=== PATIENT | male | born 1980 | race Caucasian/White ===

== ENCOUNTER 2016-04-18 12:14 | Inpatient (IN) | payer OTHER ==
[2016-04-18] MEDS ORDERED: IV VANCOMYCIN PER PHARMACY 1 EACH MISC MISCELLANE PRN (12:38)
[2016-04-18] MEDS ORDERED: SODIUM CHLORIDE 0.9% 1,000 ML IV STA ×2 (12:38)
[2016-04-18] MEDS ORDERED: VANCOMYCIN 1,500 MG in SODIUM CHLORIDE 0.9% 250 ML IVPB STA (12:40)
[2016-04-18] MEDS ORDERED: ACETAMINOPHEN IV (For NPO) 1,000 MG in SALINE 100 100ML.BAG IVPB STA (12:44)
--- NOTE | 2016-04-18 12:44 | ED ---
General Adult HPI - General Source: patient, RN notes reviewed Mode of arrival: ambulatory Limitations: no limitations <Miller Haynes - Last Filed: 04/18/16 14:11> <Cuco Nuno - Last Filed: 05/04/16 08:59> - General Chief complaint: Skin/Abscess/Foreign Body Stated complaint: Male Time Seen by Provider: 04/18/16 12:29 - History of Present Illness Initial comments: Patient 35-year-old male who presents emergency room today with a chief complaint of "bites" to his legs and to his scrotum and penis. Patient states that her Zosyn 3 days ago with to the tip of his penis. Patient states that he also has a spot located to the right scrotum. States that he's been using peroxide areas. Please it's due to bed bugs. Has a few spots going down the legs. States is local tenderness. He denies any other complaints. Patient denies any recent fever, chills, shortness of breath, chest pain, back pain, abdominal pain, nausea or vomiting, numbness or tingling, dysuria or hematuria, constipation or diarrhea, headaches or visual changes, or any other complaints. (Miller Haynes) - Related Data Home Medications Medication Instructions Recorded Confirmed ARIPiprazole [Abilify Maintena] 400 mg IM Q28D 03/29/15 04/18/16 Divalproex ER [Depakote ER] 1,000 mg PO HS 01/09/16 04/18/16 Ibuprofen [Advil] 200 - 400 mg PO Q8HR PRN 04/18/16 04/18/16 Previous Rx's Medication Instructions Recorded Acetaminophen Tab [Tylenol] 650 mg PO Q6HR PRN #0 tab 04/24/16 Ibuprofen [Motrin] 600 mg PO Q6HR PRN #30 tab 04/24/16 ceFAZolin [Kefzol] 2 gm IV Q8H #42 bag 04/24/16 Allergies Allergy/AdvReac Type Severity Reaction Status Date / Time No Known Allergies Allergy Verified 04/18/16 13:09 Review of Systems ROS Other: All systems not noted in ROS Statement are negative. <Miller Haynes - Last Filed: 04/18/16 14:11> ROS Other: All systems not noted in ROS Statement are negative. <Cuco Nuno - Last Filed: 05/04/16 08:59> ROS Statement: Those systems with pertinent positive or pertinent negative responses have been documented in the HPI. Past Medical History Past Medical History: No Reported History Additional Past Medical History / Comment(s): Mental health History of Any Multi-Drug Resistant Organisms: None Reported Past Surgical History: Adenoidectomy, Tonsillectomy Past Psychological History: Depression Smoking Status: Current every day smoker Past Alcohol Use History: None Reported Past Drug Use History: None Reported <DallasMiller - Last Filed: 04/18/16 14:11> General Exam Limitations: no limitations <Miller Haynes - Last Filed: 04/18/16 14:11> <Cuco Nuno - Last Filed: 05/04/16 08:59> - General Exam Comments Initial Comments: General: The patient is awake and alert, in no distress, and does not appear acutely ill. Eye: Pupils are equal, round and reactive to light, extra-ocular movements are intact. No nystagmus. There is normal conjunctiva bilaterally. No signs of icterus. Ears, nose, mouth and throat: There are moist mucous membranes and no oral lesions. Neck: The neck is supple, there is no tenderness or JVD. Cardiovascular: Cardiac No murmur, rub or gallop is appreciated. Respiratory: Lungs are clear to auscultation, respirations are non-labored, breath sounds are equal. No wheezes, stridor, rales, or rhonchi. Gastrointestinal: Soft, non-distended, non-tender abdomen without masses or organomegaly noted. There is no rebound or guarding present. No CVA tenderness. Bowel sounds are unremarkable. Musculoskeletal: Normal ROM, no tenderness. Strength 5/5. Sensation intact. Pulses equal bilaterally 2+. Neurological: A&O x 3. CN II-XII intact, There are no obvious motor or sensory deficits. Coordination appears grossly intact. Speech is normal. Skin/: She does have small scattered scabs to the shins bilaterally. Patient does have abscess formation to the left upper thigh measuring approximately 1-2 cm across. Patient has area to the right upper scrotum which is firm on palpation maxillary approximate 1-2 cm across. Excoriated centrally. Patient does have redness around the tip of the penis. Psychiatric: Cooperative, appropriate mood & affect, normal judgment. (Miller Haynes) Procedures <Miller Haynes - Last Filed: 04/18/16 14:11> <Cuco Nuno - Last Filed: 05/04/16 08:59> - Procedures Initial comment: Procedure: Incision and drainage Abscess to the left upper leg. The skin overlying the abscess was prepped with Betadine, and anesthetized with 1% lidocaine without epinephrine. A #11 scalpel was then used to incise the abscess. Some purulent material was then extracted from the lesion. Wound culture obtained. Gauze dressing placed on top, The patient tolerated the procedure well. (Miller Haynes) Medical Decision Making - Lab Data Result diagrams: 04/18/16 12:47 04/18/16 12:47 <Miller Haynes - Last Filed: 04/18/16 14:11> - Lab Data Result diagrams: 04/22/16 07:26 04/24/16 07:46 <Cuco Nuno - Last Filed: 05/04/16 08:59> - Medical Decision Making Patient labs reviewed here in the emergency room shows 27,000 white count. Chest x-ray does show evidence for patchy pneumonia. Patient will be started on antibiotics. Patient's been started on a glass here in the emergency room. Case was discussed and seen by attending physician Dr. Nuno who discussed case with covering physician for Dr. Jori Andrews. Patient will be admitted with consult to infectious disease Dr Bermeo. (Miller Haynes) I saw this patient in conjunction with the physician wet process assistant head miller. I performed independent history and physical exam. Agree with case management. (Cuco Nuno) - Lab Data Lab Results 04/18/16 04/18/16 04/18/16 Range/Units 12:47 12:47 12:47 WBC 27.3 H* (3.8-10.6) k/uL RBC 4.51 (4.30-5.90) m/uL Hgb 14.8 (13.0-17.5) gm/dL Hct 43.0 (39.0-53.0) % MCV 95.4 (80.0-100.0) fL MCH 32.8 (25.0-35.0) pg MCHC 34.4 (31.0-37.0) g/dL RDW 12.3 (11.5-15.5) % Plt Count 179 (150-450) k/uL Neutrophils % (Manual) 79.0 % Band Neutrophils % 9.0 % Lymphocytes % (Manual) 3.0 % Monocytes % (Manual) 9.0 % Neutrophils # (Manual) 24.0 H (1.3-7.7) k/uL Lymphocytes # (Manual) 0.8 L (1.0-4.8) k/uL Monocytes # (Manual) 2.5 H (0-1.0) k/uL Nucleated RBCs 0 (0-0) /100 WBC Manual Slide Review Performed Toxic Granulation Present RBC Morphology Normal Sodium 137 (137-145) mmol/L Potassium 4.2 (3.5-5.1) mmol/L Chloride 97 L (98-107) mmol/L Carbon Dioxide 30 (22-30) mmol/L Anion Gap 10 mmol/L BUN 5 L (9-20) mg/dL Creatinine 0.85 (0.66-1.25) mg/dL Est GFR (MDRD) Af Amer >60 (>60 ml/min/1.73 sqM) Est GFR (MDRD) Non-Af >60 (>60 ml/min/1.73 sqM) Glucose 109 H (74-99) mg/dL Plasma Lactic Acid Fritz 1.4 (0.7-2.0) mmol/L Calcium 10.0 (8.4-10.2) mg/dL Total Bilirubin 0.8 (0.2-1.3) mg/dL AST 59 (17-59) U/L ALT 92 H (21-72) U/L Alkaline Phosphatase 100 (38-126) U/L Total Protein 7.6 (6.3-8.2) g/dL Albumin 4.2 (3.5-5.0) g/dL Disposition Time of Disposition: 13:55 <Miller Haynes - Last Filed: 04/18/16 14:11> <Cuco Nuno - Last Filed: 05/04/16 08:59> Clinical Impression: Scrotal abscess, Fever, Leukocytosis, Leg abscess, Community acquired pneumonia Disposition: ADMITTED IP TO THIS [facility] Condition: Stable
[2016-04-18 13:02] LABS: CH 32.5; CHCM 34.2; HDW 2.24; HGB 14.8 gm/dL (13.0-17.5); Immature Gran Flag Slight; MCH 32.8 pg (25.0-35.0); MCHC 34.4 g/dL (31.0-37.0); MCV 95.4 fL (80.0-100.0); RBC 4.51 m/uL (4.30-5.90); RDW 12.3 % (11.5-15.5); WBC (Perox) 25.01
[2016-04-18 13:11] LABS: ALT 92 U/L (21-72); AST 59 U/L (17-59); Alkaline Phosphatase 100 U/L (38-126); Anion Gap 10 mmol/L; Blood Urea Nitrogen 5 mg/dL (9-20); Carbon Dioxide 30 mmol/L (22-30); Chloride 97 mmol/L (98-107); Glucose 109 mg/dL (74-99); Non-African American GFR(MDRD) >60 (>60 ml/min/1.73 sqM); Potassium 4.2 mmol/L (3.5-5.1); Sodium 137 mmol/L (137-145); Total Bilirubin 0.8 mg/dL (0.2-1.3); Total Protein 7.6 g/dL (6.3-8.2); WBC 27.3 k/uL (3.8-10.6)
[2016-04-18 13:19] LABS: Add Differential Manual Differential
[2016-04-18 13:21] LABS: Manual Review Performed; Nucleated Red Blood Cells 0 /100 WBC (0-0); RBC Morphology Normal; Total Cells Counted 100; Toxic Granulation Present
[2016-04-18] MEDS ORDERED: IBUPROFEN 600 MG TAB PO STA (13:49)
[2016-04-18] MEDS ORDERED: SODIUM CHLORIDE 0.9% 1,000 ML IV ONE (13:55)
[2016-04-18] MEDS ORDERED: ONDANSETRON 4 MG/2 ML VIAL IVP PRN (13:55)
[2016-04-18] MEDS ORDERED: NALOXONE 0.4 MG/ML 1 ML VIAL IV PRN (13:55)
[2016-04-18] MEDS ORDERED: IBUPROFEN 400 MG TAB PO PRN (13:55)
[2016-04-18] MEDS ORDERED: HYDROmorphone 1 MG/ML 1 ML SYRINGE IV PRN (13:55)
--- NOTE | 2016-04-18 14:05 | XR ---
EXAMINATION TYPE: XR chest 2V DATE OF EXAM: 04/18/2016 1:48 PM COMPARISON: 10/22/2012 INDICATION: Cough TECHNIQUE: Single frontal view of the chest is obtained. FINDINGS: The heart size is normal. The pulmonary vasculature is normal. Patchy infiltrates are present greater on the right. Underlying masses are not excluded. Follow-up to clearing is recommended. IMPRESSION: 1. Patchy infiltrates greater on the right. Correlate for pneumonia. This should be followed to clear ing.
[2016-04-18] MEDS ORDERED: AZITHROMYCIN 500 MG in SODIUM CHLORIDE 0.9% 250 ML IVPB STA (14:15)
[2016-04-18] MEDS: LEVOFLOXACIN 750 MG TAB PO SCH (16:39)
[2016-04-18] MEDS: DIVALPROEX ER 500 MG TAB.ER.24H PO SCH (19:57)
[2016-04-18] MEDS: HYDROcodone/APAP 5-325MG 1 EACH TAB PO PRN (20:01)
[2016-04-18] MEDS: VANCOMYCIN 1,500 MG in SODIUM CHLORIDE 0.9% 250 ML IVPB SCH (23:59)
[2016-04-19] MEDS: IBUPROFEN 600 MG TAB PO PRN ×3 (04:43→20:16)
[2016-04-19 07:24] LABS: Basophils # (A) 0.1 k/uL (0-0.2); Basophils % (A) 0 %; CH 32.2; CHCM 33.2; Eosinophils # (A) 0.1 k/uL (0-0.7); Eosinophils % (A) 0 %; HCT 37.6 % (39.0-53.0); HDW 2.12; HGB 12.5 gm/dL (13.0-17.5); Luc # (Auto) 0.43; Luc % (Auto) 2; Lymphocytes # (A) 1.6 k/uL (1.0-4.8); Lymphocytes % (A) 7 %; MCH 32.4 pg (25.0-35.0); MCHC 33.4 g/dL (31.0-37.0); MCV 97.3 fL (80.0-100.0); Mean Platelet Volume 7.1; Monocytes # (A) 0.9 k/uL (0-1.0); Monocytes % (A) 4 %; Neutrophils # (A) 18.5 k/uL (1.3-7.7); Neutrophils % (A) 86 %; RBC 3.87 m/uL (4.30-5.90); RDW 12.4 % (11.5-15.5); WBC 21.5 k/uL (3.8-10.6); WBC (Perox) 22.56
[2016-04-19 07:44] LABS: ALT 50 U/L (21-72); AST 19 U/L (17-59); Alkaline Phosphatase 78 U/L (38-126); Anion Gap 10 mmol/L; Blood Urea Nitrogen 6 mg/dL (9-20); Calcium 8.4 mg/dL (8.4-10.2); Carbon Dioxide 22 mmol/L (22-30); Chloride 101 mmol/L (98-107); Glucose 121 mg/dL (74-99); Non-African American GFR(MDRD) >60 (>60 ml/min/1.73 sqM); Potassium 3.7 mmol/L (3.5-5.1); Sodium 133 mmol/L (137-145); Total Bilirubin 0.7 mg/dL (0.2-1.3); Total Protein 5.7 g/dL (6.3-8.2)
--- NOTE | 2016-04-19 08:29 | CONS ---
DATE OF CONSULTATION: 04/18/2016 REASON FOR CONSULTATION: 1. Scrotal and left thigh abscess. 2. Possible pneumonia. HISTORY OF PRESENT ILLNESS: The patient is a 35 -year-old male presenting to the ER with a chief complaints of multiple insect bites to his scrotal and left thigh area. He said this has been going on for about 3 days. The patient did develop swelling and redness of the left thigh area. Pain is described to be throbbing, 5-6/10 and no radiation. The patient denies any high grade fever, rigors or chills. However, did spike a fever down in the ER. The patient did have drainage of the left thigh abscess done by the ER physician. Culture has been obtained. He did have a chest x-ray that was suspicious for pneumonia. The patient will be started on broad-spectrum antibiotics in the form of Vanco and Rocephin and azithromycin. Admitted to the hospital. I was asked to see the patient for further recommendation. Patient thinks it is more likely from bed bugs, however, not sure if he has seen any of the bugs themselves. The patient did have underlying history of bipolar depression. Currently denies any worsening symptoms as far as depression is concerned. The patient is sexually active and uses protection and with the same partner for a long time. REVIEW OF SYSTEMS: CONSTITUTIONAL: Positive for weakness and a fever. EYES: No complaint. ENT: No complaint. RESPIRATORY: As per HPI. CARDIOVASCULAR: No complaint. GENITOURINARY: As per HPI . GASTROENTEROLOGY: No complaint. MUSCULOSKELETAL: No complaint. INTEGUMENTARY: As per HPI. PSYCHOLOGICAL: No complaint. ENDOCRINE: No complaint. NEUROLOGICAL: No complaint. Past medical history significant for bipolar depression. PAST SURGICAL HISTORY: Adenoidectomy, tonsillectomy. SOCIAL HISTORY: The patient is a current every day smoker and denied any drinking or drug use. Sexually active. ALLERGIES: No known drug allergies. Medications currently include the patient is on: 1. Tylenol. 2. [place]. 3. Rocephin. 4. Depakote. 5. Dilaudid. 6. Motrin. 7. Zithromax. 8. Narcan. 9. Zofran. 10. Vancomycin. On examination, blood pressure is 122/60 with a pulse of 114, temperature 100.9, T-max is 101.1. He is 99% on 2 liters nasal cannula. General description is a middle-age male lying in bed in no distress. HEENT no pallor or scleral icterus. Oral mucosa membranes dry. NECK: Trachea central. There is no thyromegaly. LUNGS: Unlabored breathing. Some coarse breath sounds at base. No wheeze. HEART: S1, S2. Regular rate and rhythm. ABDOMEN: Soft, no tenderness. Extremities: No edema of the feet. SKIN EXAMINATION: Patient did have a boil that has been drained from the left thigh area with some erythema. No pus was noticed. He also has an area of induration of his right scrotal area, but no fluctuation or drainage. NEUROLOGICAL: The patient is awake, alert, oriented x3. Mood and affect normal. LABS: Hemoglobin is 14.8, white count 27.3 with a BUN of 5, creatinine 0.5. Electrolytes have been normal. LDL elevated to 92. Blood culture has been obtained which are currently pending. DIAGNOSTIC IMPRESSION AND PLAN: Patient admitted to the hospital with sepsis and patient did have fever of 101 degrees Fahrenheit. The patient did have tachycardia, elevated white count meeting criteria for systemic inflammatory response syndrome, source is likely multifactorial with evidence of right scrotum and left thigh abscess likely from Gram-positive skin mariza such as Staph or Strep. The patient also has evidence of pneumonia on the basis of the x-ray findings and his congested cough. The patient is not a very good historian. More likely usual respitory pathogen. PLAN: 1. We will try to obtain sputum for Gram stain and cultures. blood culture has been obtained as well as the wound cultures. 2. The patient did mention he did have HIV test about a year ago that was negative but did agree to have hence HIV test will be ordered. 3. The patient continue on Vancomycin however, switch Zithromax to Levaquin. 4. Will follow up on his clinical condition and cultures to further adjust the medication if needed. Thank you for this consultation. We will follow this patient along with you. PIEDAD
[2016-04-19] MEDS: VANCOMYCIN 1,500 MG in SODIUM CHLORIDE 0.9% 250 ML IVPB SCH ×2 (08:44→20:16)
[2016-04-19] MEDS ORDERED: AZITHROMYCIN 500 MG in SODIUM CHLORIDE 0.9% 250 ML IVPB SCH (16:00)
[2016-04-19] MEDS: LEVOFLOXACIN 750 MG TAB PO SCH (17:00)
[2016-04-19] MEDS: ACETAMINOPHEN TAB 325 MG TAB PO PRN ×2 (17:00→23:11)
[2016-04-19] MEDS: DIVALPROEX ER 500 MG TAB.ER.24H PO SCH (20:16)
[2016-04-19] MEDS: HEPARIN SODIUM,PORCINE 5,000 UNIT/ML 1 ML VIAL SQ SCH (20:17)
--- NOTE | 2016-04-19 20:35 | HP ---
DATE OF ADMISSION: 04/18/2016 I am covering for Dr. Santiago Velez. Mayito Canas is a 35-year-old male who came into the ED with a complaint of bites to his leg, scrotum and penis. He had some drainage coming out and then put some peroxide on this. He started to get worse and subsequently came into the ED for further evaluation. PAST MEDICAL HISTORY: Positive for depression, adenoidectomy, tonsillectomy. SOCIAL HISTORY: The patient is a smoker, does not drink alcohol excessively. FAMILY HISTORY: Noncontributory. Medications prior to admission were: 1. Advil. 2. Depakote. 3. Abilify. On physical examination, temperature is 98.1, respiratory rate 18, pulse rate 91, blood pressure 108/57. O2 sat is 97%. HEENT is unremarkable. Chest is clear. Cardiovascular system reveals S1 and S2. ABDOMEN: Soft. There is no edema. Scrotal area has erythema with some purulent drainage, which there is also some swelling in the left thigh consistent with an abscess Labs reveal blood pressure 27.3 thousand, hemoglobin of 14.8. Sodium 137, potassium 4.2, chloride 97, bicarbonate 30, BUN 5, creatinine 0.85, albumin of 3. Sodium 133. Chest x-ray shows some patchy infiltrates. IMPRESSION: 1. Scrotal cellulitis with possible abscess in the thigh. 2. Systemic inflammatory response. 3. Scattered infiltrates, which may be due to systemic inflammatory response and nonspecific reaction in the lung. 4. Hyponatremia. 5. Moderately severe protein malnutrition. At this point in time, the patient has been seen by ID, would continue Rocephin and Levaquin with vancomycin. Keep him on GI and DVT prophylaxis. Would have general surgery further evaluate the patient to see if he would require any kind of incision and drainage. He was counseled regarding his condition and this approach.
[2016-04-20] MEDS: VANCOMYCIN 1,500 MG in SODIUM CHLORIDE 0.9% 250 ML IVPB SCH ×3 (03:48→19:19)
[2016-04-20 04:16] LABS: HIV-1/HIV-2 Ab Screen NONREAC (NON REAC)
[2016-04-20] MEDS ORDERED: VANCOMYCIN TROUGH DUE 1 EACH MISC MISCELLANE ONE ×2 (07:00→18:00)
--- NOTE | 2016-04-20 07:25 | PN ---
DATE OF SERVICE: 04/19/2016 Reason for followup is: 1. Scrotal and left thigh abscess with Gram-positive bacteremia. 2. Question of pneumonia. INTERVAL HISTORY: The patient is afebrile. Has been breathing comfortably. The patient's left eye pain and swelling has improved. Patient denies having any chest pain, shortness of breath, has some occasional cough. No abdominal pain. On examination, blood pressure is 138/57 with a pulse of 91, temperature of 98.1. He is 97% on room air. General description is a middle-age male, up in the chair in no distress. HEENT EXAMINATION: No scleral icterus. LUNGS: Unlabored breath, coarse breath sounds at the base. HEART: S1, S2. Regular rate and rhythm. ABDOMEN: Soft, no tenderness. Left thigh redness has slightly decreased; however, on pressure pus did come out. Scrotal induration was present, about the same, no worsening. LABS: Hemoglobin is 12.5, white count 21.5, BUN of 6, creatinine 0.79. The left thigh culture showing a presumptive Staphylococcus aureus, blood culture with gram-positive cocci in clusters. DIAGNOSTIC IMPRESSION AND PLAN: 1. Patient admitted to hospital with sepsis, source would be left thigh, scrotal abscess and cellulitis, status post drainage of the abscess from the left thigh area. At this time, the patient will continue vancomycin, pharmacy to dose. Blood culture repeat with no evidence of any persistent bacteremia. 2. Patient with question of possible pneumonia, community-acquired. He is currently covered with Rocephin and azithromycin that will be continued. Will try to obtain sputum. Continue supportive care. [facility]
[2016-04-20 08:29] LABS: Anion Gap 11 mmol/L; Blood Urea Nitrogen 8 mg/dL (9-20); Carbon Dioxide 23 mmol/L (22-30); Chloride 100 mmol/L (98-107); Glucose 100 mg/dL (74-99); Non-African American GFR(MDRD) >60 (>60 ml/min/1.73 sqM); Potassium 3.7 mmol/L (3.5-5.1); Sodium 134 mmol/L (137-145)
[2016-04-20] MEDS: ACETAMINOPHEN TAB 325 MG TAB PO PRN ×2 (10:05→17:32)
[2016-04-20] MEDS: HEPARIN SODIUM,PORCINE 5,000 UNIT/ML 1 ML VIAL SQ SCH ×2 (10:09→20:23)
--- NOTE | 2016-04-20 11:12 | P.PN ---
Subjective 35-year-old who presented to the emergency room on the april with a chief complaint of having bites involving the scrotum the penis the tip of the penis and the left upper thigh patient states he lives with his brother in which there are bedbugs in the house. Patient came into the emergency room to be seen for the above-mentioned symptoms. In the emergency room the temp was 101 heart rate was in the 130s with an elevated white count. Patient was being treated for sepsis meeting sirs criteria left thigh abscess gram-positive bacteremia with a question of pneumonia the cultures that were obtained from the left thigh showed presumptive Staphylococcus aureus blood culture was positive for gram- positive cocci in clusters with infectious disease consultation requested patient started on IV vancomycin and Zosyn. In the emergency room the abscess to the left upper thigh incision and drainage of the abscess with purulent material extracted from the lesion with wound cultures obtained chest x-ray in emergency room also suggest patchy pneumonia noted bilaterally right greater than the left Being seen on rounds this morning is up in the room currently left thigh abscess surrounding skin less red less firm positive tenderness no drainage noted. The right upper scrotum has erythema with some tenderness area is firm skin excoriated noted to the tip of the penis no drainage noted from the tip of the penis The tip of the penis redness noted around it there are multiple scattered scabs to the martínez bilaterally Objective - Vital Signs Vital signs: Vital Signs Temp 98 F 04/20/16 07:00 Pulse 100 04/20/16 07:00 Resp 16 04/20/16 07:00 BP 113/64 04/20/16 07:00 Pulse Ox 94 L 04/20/16 07:00 Intake & Output 04/19/16 04/20/16 04/20/16 18:59 06:59 18:59 Intake Total 480 1600 Balance 480 1600 Weight 90.718 kg Intake: Oral 480 1600 Other: Voiding Method Toilet Toilet Toilet Urinal Urinal Urinal # Voids 1 2 - Exam Physical exam 35-year-old male up in room appears in no acute distress lungs essentially clear on room air Heart S1-S2 audible regular Abdomen flat nontender no reports of nausea vomiting Extremities multiple scabbed areas on the bilateral lower extremities no edema Skin/ abscess formation on the left upper thigh approximately 2 cm across firm red not able to express any drainage from the site. The right upper scrotum firm with a palpable firm area noted approximately 2 cm. Skin excoriation noted to the right upper scrotum and the tip of the penis no drainage noted from the tip of the meatus - Labs CBC & Chem 7: 04/19/16 07:08 04/20/16 07:23 Labs: Abnormal Lab Results - Last 24 Hours (Table) 04/20/16 Range/Units 07:23 Sodium 134 L (137-145) mmol/L BUN 8 L (9-20) mg/dL Creatinine 0.63 L (0.66-1.25) mg/dL Glucose 100 H (74-99) mg/dL Microbiology - Last 24 Hours (Table) 04/20/16 00:49 Sputum Culture - Preliminary Sputum 04/19/16 12:37 Blood Culture Gram Stain - Preliminary Blood 04/19/16 12:28 Blood Culture - Preliminary Blood 04/18/16 14:07 Gram Stain - Preliminary Thigh - Left Wound Culture - Preliminary Presumptive Staph aureus Assessment and Plan Plan: Impression Present on admission sepsis multifactorial meet SIRS criteria likely due to left thigh and scrotal abscess with cellulitis with chest x-ray suggesting bilateral pneumonia right greater than the left likely community-acquired Status post drainage of the abscess of the left thigh done in the emergency room on admission Bipolar schizoaffective disorder Positive blood culture for bacteremia gram-positive with positive wound culture Staphylococcus aureus Current every day smoker probable COPD not diagnosed Present on admission insect bites likely bedbugs to the left upper thigh scrotum and penis Moderately severe protein malnutrition underweight BMI 27 Plan IV antibiotic Levaquin and Rocephin and vancomycin Continue recommendations by infectious disease Surgical eval pending Present on admission hyponatremia Nutritional supplements Resume home meds as appropriate DVT and GI prophylaxis Wound care per infectious diseases recommendations The above dictated assessment and findings were discussed with dr mayen . Impression and the plan of care have been dictated as directed. Jenna Colon nurse practitioner acting as a scribe for dr mayen .
[2016-04-20] MEDS ORDERED: HYDROmorphone 1 MG/ML 1 ML SYRINGE IVP PRN (11:13)
[2016-04-20] MEDS: FAMOTIDINE 20 MG TAB PO SCH ×2 (11:40→20:22)
[2016-04-20] MEDS: IBUPROFEN 600 MG TAB PO PRN (14:40)
[2016-04-20] MEDS: LEVOFLOXACIN 750 MG TAB PO SCH (17:31)
--- NOTE | 2016-04-20 17:46 | HP ---
DATE OF ADMISSION: CHIEF COMPLAINT: Cellulitis of the left leg. HISTORY OF PRESENT ILLNESS: This is another admission for this 35-year-old male. He apparently sustained some type of a bite or a cut on the left anterior thigh which went on to develop an intensely red, inflamed and tender cellulitis on the left thigh heading down into the lower leg. He has also had an erythematous rash in the groin and on the penis as well. He also has an impressive meatitis. He is a poor historian. REVIEW OF SYSTEMS: He denies any neurologic problems, change in vision or hearing, cough, hemoptysis, chest pain, murmurs, rheumatic fever, abdominal pain, melena, hematochezia, jaundice, hematemesis, ulcer disease, pancreatitis, etc. He is not a diabetic. Past medical history, family history, and personal and social histories reveal that he is on: 1. Lipitor 10 mg at bedtime. 2. Benadryl 50 mg at bedtime. 3. ( ) 10 mg once a day. 4. Abilify injection 400 mg once a month. 5. Depakote 500 mg once a day. 6. Vitamin D 50,000 units a month. 7. Ventolin HFA. He is NOT ALLERGIC TO ANY MEDICATIONS. He quit smoking in 2014. He does not drink. PHYSICAL EXAM: Blood pressure is 160/110 with a pulse of 100, respirations 16, temperature 99. In general he appeared to be in no acute distress. Skin color is normal. Head, ears, eyes, nose, mouth and throat were normal. Chest is clear. Cardiac exam is normal sinus rhythm. Abdomen is flat and soft. ( ) exam revealed a necrotic lesion on the anterior left thigh with cellulitis anteriorly and distally. It was very erythematous. He also had a rash in the pubic area extending into the penis and marked meatitis as well. He is admitted to the hospital with the diagnoses: 1. Methicillin-resistant Staphylococcus aureus cellulitis of the lower extremities with the left being involved more than the right. 2. Dermatitis in the perineal area. 3. Meatitis. PLAN: 1. Bed rest. 2. IV fluids. 3. IV antibiotics. 4. Consult with Infectious Disease.
--- NOTE | 2016-04-20 17:48 | PN ---
DATE OF SERVICE: 04/20/2016 CHIEF COMPLAINT: Cellulitis of the left leg, dermatitis in the perineal area and meatitis. HISTORY OF PRESENT ILLNESS: The gentleman still has an extensive bright red erythematous cellulitis on the left anterior thigh down into the lower leg. He feels that the pain is getting worse. He has been seen by Infectious Disease. PHYSICAL EXAMINATION: CHEST: Clear. CARDIAC: Normal. ABDOMEN: Soft, nontender. EXTREMITIES: Unchanged. IMPRESSION: 1. Cellulitis of the left lower leg with methicillin-resistant Staphylococcus aureus. 2. Dermatitis in the perineal and pubic area. 3. Meatitis. PLAN: Continue with IV fluids and antibiotics. Monitor all 3 of these areas.
[2016-04-20] MEDS: DIVALPROEX ER 500 MG TAB.ER.24H PO SCH (20:22)
[2016-04-21] MEDS: ceFAZolin 2 GM in SODIUM CHLORIDE 0.9% 100 ML IVPB SCH ×4 (00:12→23:38)
[2016-04-21] MEDS: IBUPROFEN 600 MG TAB PO PRN ×3 (02:58→21:12)
--- NOTE | 2016-04-21 06:05 | PN ---
DATE OF SERVICE: 04/20/2016 Reason for followup is left thigh and scrotal abscess with bacteremia. INTERVAL HISTORY: The patient is afebrile. Has been breathing comfortably. Still having pain and swelling to the left thigh area. No nausea, vomiting or any diarrhea. On examination, blood pressure 113/64 with a pulse of 100, temperature 98. He is 94% on room air. General description is a middle-age male up in the chair in no distress. RESPIRATORY SYSTEM: Unlabored breathing. Some coarse breath sounds at the bases. HEART: S1, S2. Regular rate and rhythm. ABDOMEN: Soft, no tenderness. Left thigh did have some erythematous , but no induration or drainage was noticed. LABS: Wound culture finalized with MSSA. Blood cultures with Staphylococcus aureus. DIAGNOSTIC IMPRESSION AND PLAN: Patient with methicillin-susceptible Staphylococcus aureus left thigh abscess, status post drainage, now with persistent fever and bacteremia. Recommend obtaining a surgery evaluation for evaluation of the left thigh to make sure that does not need to be drained further. Antibiotic will be adjusted to cefazolin, discontinue Vanco and Rocephin. Continue supportive care. [id number]
[2016-04-21 07:35] LABS: Anion Gap 14 mmol/L; Blood Urea Nitrogen 6 mg/dL (9-20); Calcium 8.4 mg/dL (8.4-10.2); Carbon Dioxide 22 mmol/L (22-30); Chloride 100 mmol/L (98-107); Glucose 94 mg/dL (74-99); Non-African American GFR(MDRD) >60 (>60 ml/min/1.73 sqM); Potassium 3.5 mmol/L (3.5-5.1); Sodium 136 mmol/L (137-145)
--- NOTE | 2016-04-21 07:59 | P.GSCN ---
History of Present Illness Consult date: 04/21/16 Reason for Consult: Left thigh abscess History of present illness: Patient presents to the hospital with complaints of pain in the left anterior thigh. He complains of the wound there that he believes is related to a bite that he received at home. He also described tender areas in the right scrotal region and also his penis. No history of similar events in the past. He has had fevers. Last night he had a fever as high as well too. While he was in the emergency department a incision and drainage was performed overlying the left anterior thigh area of erythema and induration. MSSA has thus far been found. He is currently on antibiotics. He is being seen also by infectious disease. Per the patient he believes it improving. 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 Hx of History of Any Multi-Drug Resistant Organisms: None Reported Past Surgical History: Adenoidectomy, Tonsillectomy Past Psychological History: Depression, Schizophrenia Smoking Status: Current every day smoker Past Alcohol Use History: None Reported Past Drug Use History: None Reported - Past Family History Father Family Medical History: Myocardial Infarction ([place]) Additional Family Medical History / Comment(s): anger management and alchocol Medications and Allergies Home Medications Medication Instructions Recorded Confirmed Type ARIPiprazole [Abilify Maintena] 400 mg IM Q28D 03/29/15 04/18/16 History Divalproex ER [Depakote ER] 1,000 mg PO HS 01/09/16 04/18/16 History Ibuprofen [Advil] 200 - 400 mg PO Q8HR PRN 04/18/16 04/18/16 History Allergies Allergy/AdvReac Type Severity Reaction Status Date / Time No Known Allergies Allergy Verified 04/18/16 13:09 Surgical - Exam Vital Signs Temp Pulse Resp BP Pulse Ox 101.1 F H 130 H 20 131/61 96 04/18/16 12:04/18/16 12:17 04/18/16 12:04/18/16 12:17 04/18/16 12:17 Physical exam: General: Well-developed, well-nourished HEENT: Normocephalic, sclerae nonicteric Abdomen: Nontender, nondistended Extremities: Left thigh with a area of erythema measuring approximately 10 x 12 cm, mild tenderness, no fluctuance, additional areas of induration involving the left proximal scrotum without fluctuance and minimal erythema Neuro: Alert and oriented Results - Labs 04/19/16 07:08 04/21/16 06:52 Abnormal Lab Results - Last 24 Hours (Table) 04/20/16 04/21/16 Range/Units 07:23 06:52 Sodium 134 L 136 L (137-145) mmol/L BUN 8 L 6 L (9-20) mg/dL Creatinine 0.63 L 0.61 L (0.66-1.25) mg/dL Glucose 100 H (74-99) mg/dL Microbiology - Last 24 Hours (Table) 04/19/16 12:37 Blood Culture Gram Stain - Preliminary Blood Blood Culture - Preliminary Presumptive Staph aureus 04/18/16 14:07 Gram Stain - Final Thigh - Left Wound Culture - Final Staphylococcus aureus 04/20/16 00:49 Gram Stain - Preliminary Sputum Sputum Culture - Preliminary 04/19/16 12:28 Blood Culture - Preliminary Blood Diabetes panel 04/20/16 04/21/16 Range/Units 07:23 06:52 Sodium 134 L 136 L (137-145) mmol/L Potassium 3.7 3.5 (3.5-5.1) mmol/L Chloride 100 100 (98-107) mmol/L Carbon Dioxide 23 22 (22-30) mmol/L BUN 8 L 6 L (9-20) mg/dL Creatinine 0.63 L 0.61 L (0.66-1.25) mg/dL Glucose 100 H 94 (74-99) mg/dL Calcium 9.0 8.4 (8.4-10.2) mg/dL Calcium panel 04/20/16 04/21/16 Range/Units 07:23 06:52 Calcium 9.0 8.4 (8.4-10.2) mg/dL Pituitary panel 04/20/16 04/21/16 Range/Units 07:23 06:52 Sodium 134 L 136 L (137-145) mmol/L Potassium 3.7 3.5 (3.5-5.1) mmol/L Chloride 100 100 (98-107) mmol/L Carbon Dioxide 23 22 (22-30) mmol/L BUN 8 L 6 L (9-20) mg/dL Creatinine 0.63 L 0.61 L (0.66-1.25) mg/dL Glucose 100 H 94 (74-99) mg/dL Calcium 9.0 8.4 (8.4-10.2) mg/dL Adrenal panel 04/20/16 04/21/16 Range/Units 07:23 06:52 Sodium 134 L 136 L (137-145) mmol/L Potassium 3.7 3.5 (3.5-5.1) mmol/L Chloride 100 100 (98-107) mmol/L Carbon Dioxide 23 22 (22-30) mmol/L BUN 8 L 6 L (9-20) mg/dL Creatinine 0.63 L 0.61 L (0.66-1.25) mg/dL Glucose 100 H 94 (74-99) mg/dL Calcium 9.0 8.4 (8.4-10.2) mg/dL Assessment and Plan (1) Leg abscess Narrative/Plan: The patient's left thigh abscess appears to admit appropriate drain in the ER and we are left with a area of cellulitis at this time. No residual fluctuance is palpable. Would continue IV antibiotics. Monitor the patient's fevers. Will follow with you. Status: Acute
[2016-04-21] MEDS: HEPARIN SODIUM,PORCINE 5,000 UNIT/ML 1 ML VIAL SQ SCH ×2 (08:29→21:12)
[2016-04-21] MEDS: FAMOTIDINE 20 MG TAB PO SCH ×2 (08:29→21:12)
[2016-04-21] MEDS: ACETAMINOPHEN TAB 325 MG TAB PO PRN ×2 (11:05→18:12)
--- NOTE | 2016-04-21 14:18 | P.PN ---
Subjective 35 -year-old male being seen up in the room. Infectious disease and surgical service recommendations were noted and appreciated. Did note the patient had a temp of 102.1 yesterday current temp is 97.3 blood and wound cultures reviewed with cultures preliminary pending discuss with infectious disease indicates the patient will need a PICC line when the repeat blood cultures are negative. Patient has bacteremia persistent fever with left thigh abscess. Objective - Vital Signs Vital signs: Vital Signs Temp 97.3 F L 04/21/16 08:22 Pulse 95 04/21/16 08:22 Resp 18 04/21/16 08:22 BP 113/72 04/21/16 08:22 Pulse Ox 95 04/21/16 08:22 Intake & Output 04/20/16 04/21/16 04/21/16 18:59 06:59 18:59 Intake Total 250 1480 Balance 250 1480 Intake: Intake, IV Titration 250 Amount Vancomycin 1,500 mg In 250 Sodium Chloride 0.9% 250 ml @ 125 mls/hr IVPB Q8H [facility] Rx#:[id number] Oral 1480 Other: Voiding Method Toilet Toilet Toilet Urinal Urinal Urinal # Voids 2 2 - Exam Physical exam 35-year-old up in room appears in no acute distress Lungs essentially clear adequate air movement Heart S1-S2 audible and regular Abdomen flat nontender Extremities no edema the left thigh dressing dry there is less redness cellulitis or swelling to the testicles no drainage from the meatus - Labs CBC & Chem 7: 04/19/16 07:08 04/21/16 06:52 Labs: Abnormal Lab Results - Last 24 Hours (Table) 04/21/16 Range/Units 06:52 Sodium 136 L (137-145) mmol/L BUN 6 L (9-20) mg/dL Creatinine 0.61 L (0.66-1.25) mg/dL Microbiology - Last 24 Hours (Table) 04/20/16 11:16 Blood Culture - Preliminary Blood No Growth after 24 hours 04/19/16 12:37 Blood Culture Gram Stain - Preliminary Blood Blood Culture - Preliminary Presumptive Staph aureus 04/18/16 14:07 Gram Stain - Final Thigh - Left Wound Culture - Final Staphylococcus aureus 04/20/16 00:49 Gram Stain - Preliminary Sputum Sputum Culture - Preliminary Assessment and Plan Plan: Impression Present on admission sepsis multifactorial meet SIRS criteria likely due to left thigh and scrotal abscess with cellulitis with chest x-ray suggesting bilateral pneumonia right greater than the left likely community-acquired Status post drainage of the abscess of the left thigh done in the emergency room on admission Bipolar schizoaffective disorder Positive blood culture for bacteremia gram-positive with positive wound culture Staphylococcus aureus Current every day smoker probable COPD not diagnosed Present on admission insect bites likely bedbugs to the left upper thigh scrotum and penis Moderately severe protein malnutrition underweight BMI 27 Present on admission hyponatremia Plan IV antibiotic Levaquin and Rocephin Continue recommendations by infectious disease Nutritional supplements Resume home meds as appropriate DVT and GI prophylaxis Wound care per infectious diseases recommendations Did discuss with the community case manager patient does live in an apartment may need to go to [facility] facility infectious disease anticipate the PICC line for outpatient antibiotics pending blood cultures The above dictated assessment and findings were discussed with dr mayne . Impression and the plan of care have been dictated as directed. Jenna Colon nurse practitioner acting as a scribe for dr mayen .
[2016-04-21] MEDS: LEVOFLOXACIN 750 MG TAB PO SCH (15:55)
[2016-04-21] MEDS: DIVALPROEX ER 500 MG TAB.ER.24H PO SCH (21:12)
--- NOTE | 2016-04-21 21:29 | PN ---
DATE OF SERVICE: 04/21/2016 Abscess and cellulitis of the left thigh. HISTORY OF PRESENT ILLNESS: This gentleman is doing better and the cellulitis of the left thigh is doing much better. The rash in the pubic hair is also subsiding. PHYSICAL EXAM: Chest is clear and cardiac is normal. He did have a fever last night. IMPRESSION: 1. Methicillin-resistant Staphylococcus aureus abscess and cellulitis of the left thigh. 2. Meatitis. 3. Dermatitis in the perineal area. PLAN: Continue on current treatment. He is improving nicely.
[2016-04-22] MEDS: ACETAMINOPHEN TAB 325 MG TAB PO PRN ×3 (03:02→22:07)
[2016-04-22] MEDS: IBUPROFEN 600 MG TAB PO PRN (05:54)
--- NOTE | 2016-04-22 07:45 | PN ---
DATE OF SERVICE: 04/21/2016 Reason for follow-up: MSSA bacteremia and left thigh abscess. INTERVAL HISTORY: The patient is afebrile, has been breathing comfortably. Denies significant chest pain. No shortness of pain or cough. The left thigh swelling and redness has improved. No further drainage. On examination, blood pressure is 120/64 with a pulse of 72, temperature 97.9. He is 96% on room air. General description is a middle-age male up in the chair in no distress. RESPIRATORY SYSTEM: Unlabored breathing. Clear to auscultation anteriorly. HEART: S1, S2, regular rate and rhythm. ABDOMEN: Soft, no tenderness. The left thigh overall swelling and redness has improved. LABS: BUN 6 with a creatinine 0.61. Blood cultures 04/20 came back positive for Staphylococcus aureus as well. DIAGNOSTIC IMPRESSION AND PLAN: Patient with Staphylococcus aureus bacteremia, source is left thigh abscess, status post drainage with repeat blood culture negative showed no evidence of any persistent bacteremia hence the patient will need a PICC line once his blood culture is clear and he will need to continue on IV cefazolin 2 grams q.8 for 2 weeks from his negative blood cultures. Continue supportive care. PIEDAD
[2016-04-22 08:17] LABS: ALT 48 U/L (21-72); AST 30 U/L (17-59); Alkaline Phosphatase 95 U/L (38-126); Anion Gap 12 mmol/L; Blood Urea Nitrogen 8 mg/dL (9-20); Calcium 8.9 mg/dL (8.4-10.2); Carbon Dioxide 25 mmol/L (22-30); Chloride 105 mmol/L (98-107); Glucose 94 mg/dL (74-99); Non-African American GFR(MDRD) >60 (>60 ml/min/1.73 sqM); Sodium 142 mmol/L (137-145); Total Bilirubin 0.4 mg/dL (0.2-1.3)
[2016-04-22] MEDS: ceFAZolin 2 GM in SODIUM CHLORIDE 0.9% 100 ML IVPB SCH ×3 (08:39→23:24)
[2016-04-22] MEDS: HEPARIN SODIUM,PORCINE 5,000 UNIT/ML 1 ML VIAL SQ SCH ×2 (08:39→21:27)
[2016-04-22] MEDS: FAMOTIDINE 20 MG TAB PO SCH ×2 (08:39→21:28)
[2016-04-22 10:47] LABS: Basophils % (A) 0 %; CH 31.6; CHCM 31.8; Eosinophils # (A) 0.6 k/uL (0-0.7); Eosinophils % (A) 5 %; HCT 39.7 % (39.0-53.0); HDW 2.14; HGB 12.7 gm/dL (13.0-17.5); Luc # (Auto) 0.32; Luc % (Auto) 3; Lymphocytes # (A) 1.6 k/uL (1.0-4.8); Lymphocytes % (A) 13 %; MCHC 32.1 g/dL (31.0-37.0); MCV 99.8 fL (80.0-100.0); Mean Platelet Volume 8.1; Monocytes # (A) 0.8 k/uL (0-1.0); Monocytes % (A) 7 %; Neutrophils # (A) 8.9 k/uL (1.3-7.7); Neutrophils % (A) 73 %; RBC 3.98 m/uL (4.30-5.90); RDW 12.8 % (11.5-15.5); WBC 12.2 k/uL (3.8-10.6); WBC (Perox) 11.77
--- NOTE | 2016-04-22 11:32 | PN ---
CHIEF COMPLAINT: MRSA cellulitis and abscess of the left thigh. HISTORY OF PRESENT ILLNESS: This gentleman is doing fairly well and awaits a PICC line. Once this is placed, he can go home. PHYSICAL EXAM: His cellulitis is improved in the left thigh and he is otherwise doing well. IMPRESSION: Methicillin-resistant Staphylococcus aureus ( ) of the left thigh with cellulitis. PLAN: Await PICC line.
--- NOTE | 2016-04-22 12:23 | P.PN ---
Subjective Principal diagnosis: Left thigh abscess Patient complaining of increased pain today. He is afebrile. Cultures still showing MSSA. Objective - Vital Signs Vital signs: Vital Signs Temp 97.4 F L 04/22/16 07:39 Pulse 81 04/22/16 07:39 Resp 18 04/22/16 07:39 BP 104/50 04/22/16 07:39 Pulse Ox 94 L 04/22/16 07:39 Intake & Output 04/21/16 04/22/16 04/22/16 18:59 06:59 18:59 Intake Total 1164 Balance 1164 Intake: Oral 1164 Other: Voiding Method Toilet Toilet Toilet Urinal Urinal Urinal # Voids 2 1 # Bowel Movements 1 - Exam Left thigh with increased erythema, induration, and even some fluctuance distal to the incision and drainage site by about 3-4 cm, mild tenderness, able to express some purulent fluid - Labs CBC & Chem 7: 04/22/16 07:26 04/22/16 07:26 Labs: Abnormal Lab Results - Last 24 Hours (Table) 04/22/16 04/22/16 Range/Units 07:26 07:26 WBC 12.2 H (3.8-10.6) k/uL RBC 3.98 L (4.30-5.90) m/uL Hgb 12.7 L (13.0-17.5) gm/dL Neutrophils # 8.9 H (1.3-7.7) k/uL BUN 8 L (9-20) mg/dL Creatinine 0.63 L (0.66-1.25) mg/dL Total Protein 6.0 L (6.3-8.2) g/dL Albumin 3.0 L (3.5-5.0) g/dL Microbiology - Last 24 Hours (Table) 04/20/16 00:49 Gram Stain - Final Sputum Sputum Culture - Final 04/19/16 12:37 Blood Culture Gram Stain - Final Blood Blood Culture - Final Staphylococcus aureus 04/20/16 17:35 Blood Culture Gram Stain - Preliminary Blood Blood Culture - Preliminary Presumptive Staph aureus 04/20/16 17:28 Blood Culture - Preliminary Blood No Growth after 24 hours 04/20/16 17:35 Blood Culture - Preliminary Blood 04/20/16 11:16 Blood Culture - Preliminary Blood No Growth after 24 hours Assessment and Plan (1) Leg abscess Narrative/Plan: The patient I discussed the options. We'll proceed with incision and drainage of this left thigh abscess today. Status: Acute
--- NOTE | 2016-04-22 14:28 | P.PN ---
Subjective 35 -year-old male being seen on rounds today is up ambulating in the room. The left thigh noted increased redness. Fluid able to be expressed from the site. Mild tenderness. Did note the patient seen by surgical service scheduled today for an incision and drainage to be done to the left thigh abscess Objective - Vital Signs Vital signs: Vital Signs Temp 97.4 F L 04/22/16 07:39 Pulse 81 04/22/16 07:39 Resp 18 04/22/16 07:39 BP 104/50 04/22/16 07:39 Pulse Ox 94 L 04/22/16 07:39 Intake & Output 04/21/16 04/22/16 04/22/16 18:59 06:59 18:59 Intake Total 1164 Balance 1164 Intake: Oral 1164 Other: Voiding Method Toilet Toilet Toilet Urinal Urinal Urinal # Voids 2 1 # Bowel Movements 1 - Exam Physical exam 35-year-old male walking in the room appears in no acute distress Lungs essentially clear adequate air movement on room air Heart S1-S2 audible regular Abdomen soft nontender Extremities no edema to the upper extremities the right lower extremity unremarkable the left thigh increased redness with increased tenderness no scrotal edema noted - Labs CBC & Chem 7: 04/22/16 07:26 04/22/16 07:26 Labs: Abnormal Lab Results - Last 24 Hours (Table) 04/22/16 04/22/16 Range/Units 07:26 07:26 WBC 12.2 H (3.8-10.6) k/uL RBC 3.98 L (4.30-5.90) m/uL Hgb 12.7 L (13.0-17.5) gm/dL Neutrophils # 8.9 H (1.3-7.7) k/uL BUN 8 L (9-20) mg/dL Creatinine 0.63 L (0.66-1.25) mg/dL Total Protein 6.0 L (6.3-8.2) g/dL Albumin 3.0 L (3.5-5.0) g/dL Microbiology - Last 24 Hours (Table) 04/20/16 11:16 Blood Culture - Preliminary Blood No Growth after 48 hours 04/20/16 00:49 Gram Stain - Final Sputum Sputum Culture - Final 04/19/16 12:37 Blood Culture Gram Stain - Final Blood Blood Culture - Final Staphylococcus aureus 04/20/16 17:35 Blood Culture Gram Stain - Preliminary Blood Blood Culture - Preliminary Presumptive Staph aureus 04/20/16 17:28 Blood Culture - Preliminary Blood No Growth after 24 hours 04/20/16 17:35 Blood Culture - Preliminary Blood Assessment and Plan Plan: Impression Present on admission sepsis multifactorial meet SIRS criteria likely due to left thigh and scrotal abscess with cellulitis with chest x-ray suggesting bilateral pneumonia right greater than the left likely community-acquired Status post drainage of the abscess of the left thigh done in the emergency room on admission Bipolar schizoaffective disorder Positive blood culture for bacteremia gram-positive with positive wound culture Staphylococcus aureus Current every day smoker probable COPD not diagnosed Present on admission insect bites likely bedbugs to the left upper thigh scrotum and penis Moderately severe protein malnutrition underweight BMI 27 Present on admission hyponatremia Plan IV antibiotic Levaquin and Rocephin Continue recommendations by infectious disease Nutritional supplements Resume home meds as appropriate DVT and GI prophylaxis Wound care per infectious diseases recommendations Did discuss with the case investigator patient does live in an apartment may need to go to [facility] facility infectious disease anticipate the PICC line for outpatient antibiotics pending blood cultures Per infectious disease patient will need a PICC line once the blood cultures clear will need to be continued on IV antibiotic cefazolin 2 g every 8 hours for 2 weeks from his negative blood culture Surgical service to proceed today with an incision and drainage of left thigh abscess The above dictated assessment and findings were discussed with dr mayen . Impression and the plan of care have been dictated as directed. Jenna Colon nurse practitioner acting as a scribe for dr mayen .
[2016-04-22] MEDS ORDERED: LEVALBUTEROL NEB 1.25 MG/3 ML AMP INHALATION ONE ×2 (19:40→19:50)
[2016-04-22] MEDS ORDERED: MIDAZOLAM 2 MG/2 ML VIAL ONE (20:09)
[2016-04-22] MEDS ORDERED: PROPOFOL 10 MG/ML 20 ML VIAL IV ONE (20:09)
[2016-04-22] MEDS ORDERED: fentaNYL (PF) 50 MCG/ML 2 ML AMP ONE (20:09)
[2016-04-22] MEDS ORDERED: LIDOCAINE 1% INJ 10MG/ML (20 ML MDV) ONE (20:09)
[2016-04-22] MEDS ORDERED: diphenhydrAMINE 50 MG/ML 1 ML VIAL ONE (20:09)
[2016-04-22] MEDS ORDERED: LACTATED RINGERS 1,000 ML IV ONE (20:18)
[2016-04-22] MEDS ORDERED: BUPIVACAIN-EPI 0.25%-1:200,000 30 ML VIAL SQ ONE (20:28)
--- NOTE | 2016-04-22 20:39 | P.PCN ---
Date of Procedure: 04/22/16 Procedure(s) Performed: PREOPERATIVE DIAGNOSIS: Left thigh abscess POSTOPERATIVE DIAGNOSIS: Same PROCEDURE: Incision and drainage left thigh abscess SURGEON: Ruben EBL: Minimal ANESTHESIA: Wiley COMPLICATIONS: None OPERATIVE PROCEDURE: Patient place never table in the supine position. The left eye was prepped and draped in the usual sterile fashion. The skin was localized using Marcaine. A longitudinal incision was made entering into a subcutaneous abscess cavity. This was evacuated. Blunt dissection occurred. The wound was irrigated with saline. The wound was then packed with iodoform gauze and a sterile dressing was applied. DISPOSITION: Stable to recovery room
[2016-04-22] MEDS: LEVOFLOXACIN 750 MG TAB PO SCH (21:27)
[2016-04-22] MEDS: DIVALPROEX ER 500 MG TAB.ER.24H PO SCH (21:28)
--- NOTE | 2016-04-23 05:26 | PN ---
DATE OF SERVICE: 04/22/2016 Reason for followup is left thigh MSSA abscess and bacteremia. INTERVAL HISTORY: The patient is afebrile. He has been breathing comfortably. He denies having any chest pain, shortness of breath. Occasional cough. No abdominal pain. Pain and swelling of the left thigh area has improved. On examination, blood pressure is 118/62 with a pulse 97, temperature of 97.9. He is 95% on 2 L nasal cannula. General description is a middle-age male up in the bed in no distress. RESPIRATORY SYSTEM: Unlabored breathing. Clear to auscultation anteriorly. HEART: S1, S2. Regular rate and rhythm. ABDOMEN: Soft, no tenderness. Left thigh overall swelling and redness has improved. No drainage. LABS: Hemoglobin is 12.7, white count 12.2 with a BUN of 8, creatinine 0.63. Blood culture 3/ has been positive as well. Blood culture / obtained and currently negative. DIAGNOSTIC IMPRESSION AND PLAN: Patient with methicillin-susceptible Staphylococcus aureus bacteremia associated with left thigh abscess, status post drainage. Overall swelling and redness have shown improvement. The patient will continue cefazolin, waiting for the blood cultures to be negative before placing a PICC line for outpatient IV antibiotic therapy. Continue supportive care. RONND
[2016-04-23] MEDS: LEVOFLOXACIN 750 MG TAB PO SCH (07:28)
[2016-04-23] MEDS: ACETAMINOPHEN TAB 325 MG TAB PO PRN ×2 (07:28→14:46)
[2016-04-23] MEDS: FAMOTIDINE 20 MG TAB PO SCH ×2 (07:28→20:10)
[2016-04-23] MEDS: ceFAZolin 2 GM in SODIUM CHLORIDE 0.9% 100 ML IVPB SCH ×2 (07:29→14:47)
[2016-04-23] MEDS: HEPARIN SODIUM,PORCINE 5,000 UNIT/ML 1 ML VIAL SQ SCH ×2 (07:29→20:10)
[2016-04-23 07:43] LABS: Anion Gap 10 mmol/L; Blood Urea Nitrogen 6 mg/dL (9-20); Calcium 8.6 mg/dL (8.4-10.2); Carbon Dioxide 24 mmol/L (22-30); Chloride 104 mmol/L (98-107); Glucose 97 mg/dL (74-99); Non-African American GFR(MDRD) >60 (>60 ml/min/1.73 sqM); Potassium 4.2 mmol/L (3.5-5.1); Sodium 138 mmol/L (137-145)
--- NOTE | 2016-04-23 16:30 | P.PN ---
Subjective Principal diagnosis: Left thigh abscess Patient says his pain is improved. Dressings were changed earlier today. He is afebrile. Objective - Vital Signs Vital signs: Vital Signs Temp 98.2 F 04/23/16 15:00 Pulse 88 04/23/16 15:48 Resp 16 04/23/16 15:48 BP 111/54 04/23/16 15:00 Pulse Ox 93 L 04/23/16 15:00 Intake & Output 04/22/16 04/23/16 04/23/16 18:59 06:59 18:59 Intake Total 3450 240 Output Total 3301 Balance 149 240 Intake: IV 550 Oral 2900 240 Output: Urine 3300 Estimated Blood Loss 1 Other: Voiding Method Toilet Toilet Toilet Urinal Urinal Urinal # Voids 2 1 # Bowel Movements 1 - Exam Left thigh with decreased erythema, mild tenderness, wound clean - Labs CBC & Chem 7: 04/22/16 07:26 04/23/16 07:06 Labs: Abnormal Lab Results - Last 24 Hours (Table) 04/23/16 Range/Units 07:06 BUN 6 L (9-20) mg/dL Creatinine 0.60 L (0.66-1.25) mg/dL Microbiology - Last 24 Hours (Table) 04/20/16 11:16 Blood Culture - Preliminary Blood No Growth after 72 hours 04/22/16 19:33 Wound Culture - Preliminary Thigh - Left 04/22/16 19:33 Anaerobic Culture - Preliminary Thigh - Left 04/21/16 22:44 Blood Culture - Preliminary Blood No Growth after 24 hours 04/20/16 17:35 Blood Culture Gram Stain - Final Blood Blood Culture - Final Staphylococcus aureus 04/20/16 17:28 Blood Culture - Preliminary Blood No Growth after 48 hours Assessment and Plan (1) Leg abscess Narrative/Plan: Continue IV antibiotics. Await final cultures. Status: Acute
--- NOTE | 2016-04-23 17:11 | PN ---
DATE OF SERVICE: 04/23/2016 CHIEF COMPLAINT: Abscess and cellulitis of the left thigh. HISTORY OF PRESENT ILLNESS: This gentleman is doing well. PICC line is to be placed and then he will be able to leave. PHYSICAL EXAM: Chest is clear. CARDIAC: Exam is normal. Abdomen is soft, nontender. ASSESSMENT: Abscess left thigh with lymphangitis and cellulitis PLAN: PICC line, long-term antibiotics and then home soon.
[2016-04-23] MEDS: DIVALPROEX ER 500 MG TAB.ER.24H PO SCH (20:10)
[2016-04-24] MEDS: ceFAZolin 2 GM in SODIUM CHLORIDE 0.9% 100 ML IVPB SCH ×4 (00:12→23:03)
[2016-04-24] MEDS: HYDROcodone/APAP 5-325MG 1 EACH TAB PO PRN (00:15)
[2016-04-24] MEDS: ACETAMINOPHEN TAB 325 MG TAB PO PRN ×2 (05:10→18:03)
--- NOTE | 2016-04-24 07:36 | PN ---
DATE OF SERVICE: 04/23/2016 Reason for follow up is methicillin susceptible Staphylococcus aureus bacteremia secondary to left thigh abscess. INTERVAL HISTORY: The patient is afebrile. The patient did have I&D of the left thigh abscess yesterday, which the patient tolerated the procedure. Pain is currently controlled. Denies any chest pain or shortness of breath. Occasional cough. No abdominal pain or any diarrhea. On examination, blood pressure is 111/54 with a pulse of 88, temperature 98.2. He is 93% on room air. Major description is a middle-age male up in the chair in no distress. RESPIRATORY SYSTEM: Unlabored breathing. Some decreased breath sounds in the bases. No wheeze. HEART: S1, S2. Regular rate and rhythm. ABDOMEN: Soft, no tenderness. LABS: Hemoglobin is 12.7, white count 10.2 with a BUN of 6, creatinine 0.6. Blood cultures /7 have been negative so far. DIAGNOSTIC IMPRESSION AND PLAN: Patient with Methicillin-sensitive Staphylococcus aureus bacteremia. Source is left thigh abscess, status post drainage of the same with the blood culture at this time has been negative. In view of the bacteremia, the patient will need a PICC line and at least 2 weeks of IV antibiotic as an outpatient in the form of cefazolin 2 grams q.8. Family was present at beside, especially the father. All his questions and concerns were answered as he was planning on taking him home and administer his IV antibiotics. Continue supportive care.
[2016-04-24] MEDS: HEPARIN SODIUM,PORCINE 5,000 UNIT/ML 1 ML VIAL SQ SCH ×2 (07:57→20:09)
[2016-04-24] MEDS: FAMOTIDINE 20 MG TAB PO SCH ×2 (07:57→20:09)
[2016-04-24 08:31] LABS: Anion Gap 15 mmol/L; Blood Urea Nitrogen 8 mg/dL (9-20); Calcium 9.1 mg/dL (8.4-10.2); Carbon Dioxide 23 mmol/L (22-30); Chloride 102 mmol/L (98-107); Glucose 92 mg/dL (74-99); Non-African American GFR(MDRD) >60 (>60 ml/min/1.73 sqM); Potassium 4.4 mmol/L (3.5-5.1); Sodium 140 mmol/L (137-145)
[2016-04-24] MEDS ORDERED: LIDOCAINE 2% INJ 20 MG/ML SQ ONE (09:12)
--- NOTE | 2016-04-24 09:35 | IR ---
PICC LINE PLACEMENT: HISTORY: Infection requiring long-term antibiotic therapy PROCEDURE: Ultrasound and fluoroscopic guidance of PICC line placement. COMPLICATIONS: None ANESTHESIA: 1. 1% Lidocaine locally. FINDINGS/TECHNIQUE: The procedure was explained to the patient. The risks, complications, benefits and alternatives were discussed and any questions were answered. Informed consent was obtained. The patient was placed supine on the fluoroscopic table and prepped and draped in the usual sterile critical access hospital ion. Utilizing a 21 gauge needle and sonographic and fluoroscopic guidance, access in the vein was achieved and there is placement of a 0.018 guidewire. The vein is patent. A 4-F sheath was placed o marie the guidewire. The guidewire and dilator were removed and a 4-F. PICC line was placed through th e sheath with the tip at the level of the SVC. The sheath was removed, the catheter was flushed and sutured into position. The patient was stable throughout the procedure and remained stable upon disc harge from the Department of Radiology. The vein puncture was patent under ultrasound. A rodriguez scale image was obtained to document patency of the vein punctured. All elements of the maximal barrier technique were utilized. FLUOROSCOPY TIME: 0.1 minute IMPRESSION: Successful PICC line placement under ultrasound and fluoroscopic guidance.
--- NOTE | 2016-04-24 13:37 | P.DS ---
Providers Date of admission: 04/18/16 13:59 Expected date of discharge: 04/24/16 Attending physician: Santiago Velez Consults: 04/19/16 19:17 Consult Physician Routine Consulting Provider: Miller Miranda Consult Reason/Comments: abscess thigh and scrotum Do you want consulting provider notified?: Yes Primary care physician: Santiago Velez Hospital Course: 35-year-old who presented to the emergency room on the april with a chief complaint of having bites involving the scrotum the penis the tip of the penis and the left upper thigh patient states he lives with his brother in which there are bedbugs in the house. Patient came into the emergency room to be seen for the above-mentioned symptoms. In the emergency room the temp was 101 heart rate was in the 130s with an elevated white count. Patient was being treated for sepsis meeting sirs criteria left thigh abscess gram-positive bacteremia with a question of pneumonia the cultures that were obtained from the left thigh showed presumptive Staphylococcus aureus blood culture was positive for gram- positive cocci in clusters with infectious disease consultation requested patient started on IV vancomycin and Zosyn. Emergency room patient did undergo an incision and drainage of a left upper thigh abscess with purulent material extracted from the lesion. Chest x-ray suggest patchy pneumonia bilaterally right greater than the left chlamydia and gonorrhea were negative no drainage from the penis Infectious disease and surgical consultation was requested patient was started on IV antibiotics the direction of infectious disease. Infectious disease and indicated the patient would need a PICC line in for antibiotic therapy cefazolin 2 g every 8 hours. Additionally the patient did undergo a surgical incision and drainage of the left thigh abscess per Dr. Miranda on April 22. At the time of discharge and transferred to the [facility] facility patient was felt to be clinically stable Impression Present on admission sepsis multifactorial meet SIRS criteria likely due to left thigh and scrotal abscess with cellulitis with chest x-ray suggesting bilateral pneumonia right greater than the left likely community-acquired lives in a motel Status post drainage of the abscess of the left thigh done in the emergency room on admission Bipolar schizoaffective disorder Positive blood culture for bacteremia gram-positive with positive wound culture Staphylococcus aureus Current every day smoker probable COPD not diagnosed Present on admission insect bites likely bedbugs to the left upper thigh scrotum and penis Moderately severe protein malnutrition underweight BMI 27 Present on admission hyponatremia Status post April 22 incision and drainage of the left thigh abscess The above dictated assessment and findings were discussed with dr velez . Impression and the plan of care have been dictated as directed. Jenna Colon nurse practitioner acting as a scribe for dr velez . Patient Condition at Discharge: Stable Plan - Discharge Summary New Discharge Prescriptions: Ibuprofen [Motrin] 600 mg PO Q6HR PRN #30 tab PRN Reason: Mild Pain Or Fever > 100.5 ceFAZolin [Kefzol] 2 gm IV Q8H #42 bag Discharge Medication List ARIPiprazole [Abilify Maintena] 400 mg IM Q28D 03/29/15 [History] Divalproex ER [Depakote ER] 1,000 mg PO HS 01/09/16 [History] Ibuprofen [Advil] 200 - 400 mg PO Q8HR PRN 04/18/16 [History] Acetaminophen Tab [Tylenol] 650 mg PO Q6HR PRN #0 tab 04/24/16 [Rx] Ibuprofen [Motrin] 600 mg PO Q6HR PRN #30 tab 04/24/16 [Rx] ceFAZolin [Kefzol] 2 gm IV Q8H #42 bag 04/24/16 [Rx] Follow up Appointment(s)/Referral(s): Santiago Velez MD [Primary Care Provider] - 1-2 days Prince Bermeo MD [STAFF PHYSICIAN] - 1 Week Discharge Disposition: TRANSFER TO SNF/ECF
[2016-04-24 13:40] VITALS: BMI 27.1
--- NOTE | 2016-04-24 13:49 | PN ---
CHIEF COMPLAINT: Cellulitis and abscess of the left thigh. HISTORY OF PRESENT ILLNESS: This gentleman is doing well. We are awaiting for a PICC line. PHYSICAL EXAM: He is quite lethargic this morning. Chest is clear. Cardiac exam is normal. IMPRESSION: 1. Methicillin-resistant Staphylococcus aureus, abscess and cellulitis of the left thigh. 2. Perineal dermatitis. 3. Meatitis. 4. Lethargy. PLAN: Await discharge plan with PICC line. Workup etiology of the lethargy.
--- NOTE | 2016-04-24 15:15 | P.PN ---
Subjective Principal diagnosis: Left thigh abscess Patient doing well today. Pain is improved. Minimal drainage. Objective - Vital Signs Vital signs: Vital Signs Temp 98.4 F 04/24/16 07:00 Pulse 84 04/24/16 07:00 Resp 17 04/24/16 07:00 BP 124/56 04/24/16 07:00 Pulse Ox 95 04/24/16 07:00 Intake & Output 04/23/16 04/24/16 04/24/16 18:59 06:59 18:59 Intake Total 240 500 480 Balance 240 500 480 Weight 90.718 kg Intake: Oral 240 500 480 Other: Voiding Method Toilet Toilet Toilet Urinal Urinal Urinal # Voids 1 1 # Bowel Movements 1 1 - Exam Left thigh wound clean, minimal erythema, nontender - Labs CBC & Chem 7: 04/22/16 07:26 04/24/16 07:46 Labs: Abnormal Lab Results - Last 24 Hours (Table) 04/24/16 Range/Units 07:46 BUN 8 L (9-20) mg/dL Microbiology - Last 24 Hours (Table) 04/20/16 11:16 Blood Culture - Preliminary Blood No Growth after 96 hours 04/22/16 19:33 Gram Stain - Preliminary Thigh - Left Wound Culture - Preliminary Presumptive Staph aureus 04/21/16 22:44 Blood Culture - Preliminary Blood No Growth after 48 hours 04/20/16 17:28 Blood Culture - Preliminary Blood No Growth after 72 hours 04/22/16 19:33 Anaerobic Culture - Preliminary Thigh - Left Assessment and Plan (1) Leg abscess Narrative/Plan: Continue antibiotics. Continue local wound care. We'll sign off at this point. Contact if needed. Status: Acute
[2016-04-24] MEDS: LEVOFLOXACIN 750 MG TAB PO SCH (16:24)
--- NOTE | 2016-04-24 16:30 | PN ---
DATE OF SERVICE: 04/24/2016 REASON FOR FOLLOWUP: MSSA bacteremia secondary to the left thigh abscess. INTERVAL HISTORY: The patient is afebrile. He is currently breathing comfortably. Denies significant chest pain or shortness of breath or cough. No significant pain in the left thigh area. He did get a PICC line and is currently waiting for discharge to a detention. On examination, blood pressure 124/56 with a pulse of 84, temperature 98.4. He is 95% on room air. General description is a middle-aged male up in the chair in no distress. RESPIRATORY SYSTEM: Unlabored breathing. Clear to auscultation anteriorly. HEART: S1, S2. Regular rate and rhythm. ABDOMEN: Soft. No tenderness. LEFT THIGH: Wound is currently dressed up. No obvious drainage on the dressing. LABS: BUN of 8 with a creatinine 0.66. Blood culture from 04/21 has been negative. DIAGNOSTIC IMPRESSION AND PLAN: Patient with a left thigh abscess secondary to methicillin-susceptible Staphylococcus aureus bacteremia. Patient at this time will be getting cefazolin 2 grams q.8 for a total of 2 weeks from his negative blood cultures with outpatient followup. Continue supportive care.
[2016-04-24] MEDS: IBUPROFEN 600 MG TAB PO PRN (19:24)
[2016-04-24] MEDS: DIVALPROEX ER 500 MG TAB.ER.24H PO SCH (20:09)
[2016-04-25] MEDS: ACETAMINOPHEN TAB 325 MG TAB PO PRN ×2 (03:27→20:10)
[2016-04-25] MEDS: ceFAZolin 2 GM in SODIUM CHLORIDE 0.9% 100 ML IVPB SCH ×3 (07:23→23:57)
[2016-04-25] MEDS: FAMOTIDINE 20 MG TAB PO SCH ×2 (07:24→20:07)
[2016-04-25] MEDS: HEPARIN SODIUM,PORCINE 5,000 UNIT/ML 1 ML VIAL SQ SCH ×2 (07:24→20:07)
[2016-04-25] MEDS: IBUPROFEN 600 MG TAB PO PRN (10:25)
[2016-04-25] MEDS: LEVOFLOXACIN 750 MG TAB PO SCH (15:42)
--- NOTE | 2016-04-25 18:12 | PN ---
DATE OF SERVICE: 04/25/2016 CHIEF COMPLAINT: Abscess and cellulitis of the left thigh. HISTORY OF PRESENT ILLNESS: This gentleman continues to be on IV antibiotics pending discharge. He has had no new problems. PHYSICAL EXAMINATION: Chest clear. CARDIAC: Normal. ABDOMEN: Soft, nontender. IMPRESSION: Abscess left thigh with cellulitis. PLAN: Continue with IV antibiotics and await discharge.
[2016-04-25] MEDS: DIVALPROEX ER 500 MG TAB.ER.24H PO SCH (20:07)
[2016-04-26] MEDS: ceFAZolin 2 GM in SODIUM CHLORIDE 0.9% 100 ML IVPB SCH ×3 (07:10→23:37)
[2016-04-26] MEDS: FAMOTIDINE 20 MG TAB PO SCH ×2 (07:13→19:50)
[2016-04-26] MEDS: HEPARIN SODIUM,PORCINE 5,000 UNIT/ML 1 ML VIAL SQ SCH ×2 (07:13→19:50)
[2016-04-26] MEDS: LEVOFLOXACIN 750 MG TAB PO SCH (18:15)
[2016-04-26] MEDS: DIVALPROEX ER 500 MG TAB.ER.24H PO SCH (19:50)
--- NOTE | 2016-04-26 22:23 | PN ---
CHIEF COMPLAINT: Abscess left thigh. HISTORY OF PRESENT ILLNESS: The gentleman is doing well and he is on IV antibiotics with a PICC line and he has been told he can go home tomorrow. PHYSICAL EXAMINATION: Thigh looks good and chest is clear. Cardiac exam is normal. IMPRESSION: Abscess and cellulitis left thigh. PLAN: Home tomorrow.
[2016-04-26 23:13] VITALS: RESP 16
[2016-04-27] MEDS: HYDROcodone/APAP 5-325MG 1 EACH TAB PO PRN (01:14)
[2016-04-27] MEDS: ceFAZolin 2 GM in SODIUM CHLORIDE 0.9% 100 ML IVPB SCH (07:41)
[2016-04-27] MEDS: FAMOTIDINE 20 MG TAB PO SCH (07:42)
[2016-04-27] MEDS: HEPARIN SODIUM,PORCINE 5,000 UNIT/ML 1 ML VIAL SQ SCH (07:42)
[2016-04-27 07:56] VITALS: BP 114/58; PULSE 70; TEMP 97.5
--- NOTE | 2016-04-27 10:40 | PN ---
DATE OF SERVICE: 04/26/2016 Reason for followup is MSSA bacteremia secondary to left thigh abscess. INTERVAL HISTORY: The patient is afebrile. He has been breathing comfortably. Denies significant chest pain or shortness of breath. No cough. No abdominal pain. Only the pain in his left thigh area. On examination, blood pressure is 113/60 with a pulse of 83, temperature 97.6. He is 95% on room air. General description is a middle-age male, lying in bed in no distress. RESPIRATORY SYSTEM: Unlabored breathing. Clear to auscultation anteriorly. HEART: S1, S2. Regular rate and rhythm. ABDOMEN: Soft, no tenderness. Left thigh wound is current dressed up, no obvious drainage on the dressing. LABS: Hemoglobin is 12.7, white count is 5.2 from 04/22, BUN of 8, creatinine 0.86. Blood cultures from 04/21 have been negative. DIAGNOSTIC IMPRESSION AND PLAN: Patient with left thigh abscess with methicillin-sensitive Staphylococcus aureus with secondary bacteremia. Followup blood culture has been negative. The patient is currently on cefazolin 2 gm q.8 which he will continue for another 10 days to finish a course of therapy. Currently waiting for placement. Continue supportive care.
[2016-04-27] MEDS: ACETAMINOPHEN TAB 325 MG TAB PO PRN (12:52)
--- NOTE | 2016-04-27 14:36 | PN ---
CHIEF COMPLAINT: MRSA abscess and cellulitis of the left thigh. HISTORY OF PRESENT ILLNESS: This gentleman is doing well and he is fairly clear by Infectious Disease. PLAN: Let him go today and this will be arranged by the nurse practitioner. Will see him in the office in several days. IMPRESSION: 1. Methicillin-resistant Staphylococcus aureus cellulitis and abscess of the left thigh. 2. Arthritis. 3. Perineal dermatitis. PLAN: Home today and this will be arranged by the nurse practitioner.
--- NOTE | 2016-04-27 16:12 | PN ---
DATE OF SERVICE: 04/27/2016 REASON FOR FOLLOWUP: MSSA bacteremia with left thigh abscess. INTERVAL HISTORY: The patient is afebrile. He is currently waiting for placement. He denies having any significant chest pain, shortness of breath or cough. No abdominal pain or any pain to the left thigh area. On examination, blood pressure is 114/58 with a pulse of 70, temperature 97.5. He is 96% on room air. General description is a middle-aged male up in the chair in no distress. RESPIRATORY SYSTEM: Unlabored breathing. Clear to auscultation anteriorly. HEART: S1, S2. Regular rate and rhythm. ABDOMEN: Soft. No tenderness. LEFT THIGH: Overall swelling and redness have improved. No drainage. LABS: BUN of 8 with a creatinine of 0.66. DIAGNOSTIC IMPRESSION AND PLAN: Patient with methicillin-susceptible Staphylococcus aureus bacteremia secondary left thigh abscess, status post drainage of the abscess. Patient seems to be showing clinical improvement. In view of his bacteremia, he will continue on IV cefazolin 2 grams q.8 for another 10 days to finish course of therapy with outpatient followup. Continue supportive care.
[2016-05-02] MEDS ORDERED: ARIPiprazole 400 MG VIAL IM SCH (12:00)
== END 2016-04-27 13:25 | DRG 853 ==
LOC: EC 12:14 → 5MS5E 13:59
PROVIDERS: ADMIT Family Medicine; ATTEND Family Medicine
PROC: 0H9JXZX Drainage of Left Upper Leg Skin, External Approach, Diagnostic (ICD-10-PCS; 2016-04-18)
PROC: 0J9M0ZZ Drainage of Left Upper Leg Subcutaneous Tissue and Fascia, Open Approach (ICD-10-PCS; principal; 2016-04-22 20:00)
PROC: 02HV33Z Insertion of Infusion Device into Superior Vena Cava, Percutaneous Approach (ICD-10-PCS; 2016-04-24 09:00)
PROC: B548ZZA Ultrasonography of Superior Vena Cava, Guidance (ICD-10-PCS; 2016-04-24 09:00)
DX: A41.9 Sepsis, unspecified organism (principal); E43 Unspecified severe protein-calorie malnutrition; J18.9 Pneumonia, unspecified organism; L02.416 Cutaneous abscess of left lower limb; L03.116 Cellulitis of left lower limb; E87.1 Hypo-osmolality and hyponatremia; F25.0 Schizoaffective disorder, bipolar type; N49.2 Inflammatory disorders of scrotum; F17.200 Nicotine dependence, unspecified, uncomplicated; B95.62 Methicillin resistant Staphylococcus aureus infection as the cause of diseases classified elsewhere; I89.1 Lymphangitis; L30.9 Dermatitis, unspecified; M19.90 Unspecified osteoarthritis, unspecified site; Z79.899 Other long term (current) drug therapy; W57.XXXA Bitten or stung by nonvenomous insect and other nonvenomous arthropods, initial encounter; Y92.59 Other trade areas as the place of occurrence of the external cause
CPT/HCPCS: 10060; 36415; 36569; 71020; 76937; 77001; 80048; 80053; 80202; 83605; 85025; 87040; 87070; 87075; 87077; 87186; 87205; 87389; 87491; 87591; 96365; 96375; 99285

== ENCOUNTER 2016-10-20 13:37 | Emergency (ER) | payer OTHER ==
--- NOTE | 2016-10-20 14:07 | ED ---
Psych HPI - General Chief Complaint: Psychiatric Symptoms Stated Complaint: Mental Health Time Seen by Provider: 10/20/16 13:44 Source: patient, EMS, RN notes reviewed Mode of arrival: EMS Limitations: no limitations - History of Present Illness Initial Comments: This a 35-year-old male presents emergency from July complaint of depression, suicidal thoughts. Patient states that last week or 2 he's been increasingly depressed or suicidal. Patient denies illicit drug use or alcohol abuse. Patient states that he does take his psychiatric medications. He states he has not had a recent visit with his psychiatrist or counselor. Patient denies any physical complaints. - Related Data Home Medications Medication Instructions Recorded Confirmed ARIPiprazole [Abilify Maintena] 400 mg IM Q28D 03/29/15 10/20/16 Divalproex ER [Depakote ER] 1,000 mg PO HS 01/09/16 10/20/16 Albuterol Inhaler [Ventolin Hfa 1 - 2 puff INHALATION RT-QID PRN 10/20/16 Inhaler] Atorvastatin [Lipitor] 10 mg PO HS 10/20/16 10/20/16 Ergocalciferol [Vitamin D2] 50,000 unit PO Q30D 10/20/16 10/20/16 Nicotine 21Mg/24Hr Patch [Habitrol 1 patch TRANSDERM DAILY 10/20/16 10/20/16 21Mg/24Hr Patch] Vortioxetine Hydrobromide 10 mg PO HS 10/20/16 10/20/16 [Brintellix] diphenhydrAMINE [Benadryl] 50 mg PO HS 10/20/16 10/20/16 Allergies Allergy/AdvReac Type Severity Reaction Status Date / Time No Known Allergies Allergy Verified 10/20/16 16:19 Review of Systems ROS Statement: Those systems with pertinent positive or pertinent negative responses have been documented in the HPI. ROS Other: All systems not noted in ROS Statement are negative. 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 Hx of History of Any Multi-Drug Resistant Organisms: None Reported Past Surgical History: Adenoidectomy, Tonsillectomy Past Psychological History: Depression, Schizophrenia Smoking Status: Current every day smoker Past Alcohol Use History: None Reported Past Drug Use History: None Reported - Past Family History Father Family Medical History: Myocardial Infarction ([place]) Additional Family Medical History / Comment(s): anger management and alchocol General Exam Limitations: no limitations General appearance: alert, in no apparent distress Head exam: Present: atraumatic, normocephalic, normal inspection Eye exam: Present: normal appearance, PERRL, EOMI. Absent: scleral icterus, conjunctival injection, periorbital swelling ENT exam: Present: normal exam, mucous membranes moist Neck exam: Present: normal inspection. Absent: tenderness, meningismus, lymphadenopathy Respiratory exam: Present: normal lung sounds bilaterally. Absent: respiratory distress, wheezes, rales, rhonchi, stridor Cardiovascular Exam: Present: regular rate, normal rhythm, normal heart sounds. Absent: systolic murmur, diastolic murmur, rubs, gallop, clicks GI/Abdominal exam: Present: soft, normal bowel sounds. Absent: distended, tenderness, guarding, rebound, rigid Neurological exam: Present: alert, oriented X3, CN II-XII intact, reflexes normal. Absent: motor sensory deficit Psychiatric exam: Present: depressed Skin exam: Present: warm, dry, intact, normal color. Absent: rash Course Vital Signs 10/20/16 13:42 Temperature 97.8 F Pulse Rate 83 Respiratory 16 Rate Blood Pressure 124/69 O2 Sat by Pulse 95 Oximetry Medical Decision Making - Medical Decision Making Patient was evaluated by EPS and [facility]. Patient will be discharged to [facility] care. Return parameters discussed. - Lab Data Lab Results 10/20/16 Range/Units 14:35 Urine Opiates Screen Not Detected (NotDetected) Ur Oxycodone Screen Not Detected (NotDetected) Urine Methadone Screen Not Detected (NotDetected) Ur Propoxyphene Screen Not Detected (NotDetected) Ur Barbiturates Screen Not Detected (NotDetected) U Tricyclic Antidepress Not Detected (NotDetected) Ur Phencyclidine Scrn Not Detected (NotDetected) Ur Amphetamines Screen Not Detected (NotDetected) U Methamphetamines Scrn Not Detected (NotDetected) U Benzodiazepines Scrn Not Detected (NotDetected) Urine Cocaine Screen Not Detected (NotDetected) U Marijuana (THC) Screen Not Detected (NotDetected) Disposition Clinical Impression: Depression Disposition: HOME SELF-CARE Condition: Stable Instructions: Depression (ED) Additional Instructions: Please return to the Emergency Department if symptoms worsen or any other concerns. Referrals: Santiago Velez MD [Primary Care Provider] - 1-2 days Time of Disposition: 16:54
[2016-10-20 17:23] VITALS: BP 121/74; PULSE 84; RESP 18; TEMP 98
== END 2016-10-20 17:22 | disposition home or self-care (01) ==
LOC: EC 13:37
DX: F32.9 Major depressive disorder, single episode, unspecified (principal); F20.9 Schizophrenia, unspecified; F17.200 Nicotine dependence, unspecified, uncomplicated; Z79.899 Other long term (current) drug therapy
CPT/HCPCS: 80306; 82075; 99285

== ENCOUNTER 2016-11-03 22:18 | Emergency (ER) | payer OTHER ==
[2016-11-03] MEDS ORDERED: SODIUM CHLORIDE 0.9% 1,000 ML IV STA (22:27)
[2016-11-03] MEDS ORDERED: DIPH,PERTUS(ACELL)TETVAC-LF 0.5 ML VIAL IM ONE (22:27)
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
[2016-11-03 23:18] LABS: Basophils # (A) 0.1 k/uL (0-0.2); Basophils % (A) 0 %; CH 33.3; CHCM 35.2; Eosinophils # (A) 0.2 k/uL (0-0.7); Eosinophils % (A) 1 %; HDW 2.28; HGB 14.2 gm/dL (13.0-17.5); Luc % (Auto) 1; Lymphocytes # (A) 2.5 k/uL (1.0-4.8); Lymphocytes % (A) 15 %; MCH 32.1 pg (25.0-35.0); MCHC 33.9 g/dL (31.0-37.0); MCV 94.9 fL (80.0-100.0); Mean Platelet Volume 7.4; Monocytes # (A) 0.9 k/uL (0-1.0); Monocytes % (A) 6 %; Neutrophils # (A) 12.2 k/uL (1.3-7.7); Neutrophils % (A) 76 %; RBC 4.43 m/uL (4.30-5.90); RDW 13.6 % (11.5-15.5); WBC 16.1 k/uL (3.8-10.6); WBC (Perox) 17.04
[2016-11-03 23:28] LABS: ALT 25 U/L (21-72); AST 19 U/L (17-59); Alcohol <10 mg/dL; Alkaline Phosphatase 67 U/L (38-126); Anion Gap 7 mmol/L; Blood Urea Nitrogen 8 mg/dL (9-20); Carbon Dioxide 26 mmol/L (22-30); Chloride 105 mmol/L (98-107); Glucose 76 mg/dL (74-99); Non-African American GFR(MDRD) >60 (>60 ml/min/1.73 sqM); Potassium 3.2 mmol/L (3.5-5.1); Sodium 138 mmol/L (137-145); Total Bilirubin 0.4 mg/dL (0.2-1.3); Total Protein 6.2 g/dL (6.3-8.2)
[2016-11-03 23:35] LABS: Partial Thromboplastin Time 23.7 sec (22.0-30.0); Prothrombin Time 10.2 sec (9.0-12.0)
[2016-11-04 00:04] LABS: Appearance,Urine Clear (Clear); Bilirubin,Urine Negative (Negative); Glucose,Urine (UA) Negative (Negative); Ketones,Urine Negative (Negative); Leukocyte Esterase,Urine Negative (Negative); Nitrite,Urine Negative (Negative); PH, Urine 6.5 (5.0-8.0); Protein,Urine Negative (Negative); Specific Gravity,Urine 1.002 (1.001-1.035); UA Billing (MACRO vs. MICRO) CHEM; Urobilinogen,Urine <2.0 mg/dL (<2.0)
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
[2016-11-04 01:25] VITALS: BP 128/75; PULSE 85; RESP 16; TEMP 98
== END 2016-11-04 01:22 | disposition home or self-care (01) ==
LOC: EC 22:18
DX: S11.91XA Laceration without foreign body of unspecified part of neck, initial encounter (principal); S00.12XA Contusion of left eyelid and periocular area, initial encounter; S00.33XA Contusion of nose, initial encounter; S40.012A Contusion of left shoulder, initial encounter; R00.0 Tachycardia, unspecified; F32.9 Major depressive disorder, single episode, unspecified; F20.9 Schizophrenia, unspecified; F17.200 Nicotine dependence, unspecified, uncomplicated; Z23 Encounter for immunization; Z79.899 Other long term (current) drug therapy; Y04.2XXA Assault by strike against or bumped into by another person, initial encounter
CPT/HCPCS: 36415; 70450; 70486; 71010; 72125; 72170; 80053; 80306; 80320; 81003; 85025; 85610; 85730; 86850; 86900; 86901; 90471; 90715; 93005; 96360; 99285

== ENCOUNTER 2016-11-14 | Emergency (ER) | payer OTHER ==
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
== END 2016-11-14 14:39 | disposition home or self-care (01) ==
CPT/HCPCS: 99283

== ENCOUNTER 2017-05-26 21:10 | Inpatient (IN) | payer MEDICAID, OTHER ==
[2017-05-26 21:50] LABS: Amphetamine Screen,Urine Not Detected (NotDetected); Barbiturate Screen,Urine Not Detected (NotDetected); Benzodiazepines Screen,Urine Not Detected (NotDetected); Cocaine Screen,Urine Not Detected (NotDetected); Methadone Screen, Urine Not Detected (NotDetected); Opiate Screen,Urine Not Detected (NotDetected); Oxycodone Screen, Urine Not Detected (NotDetected); Phencyclidine Screen,Urine Not Detected (NotDetected); Tricyclic Antidepressant,Urine Not Detected (NotDetected); Urn Cannabinoid Scrn Detected (NotDetected)
--- NOTE | 2017-05-26 22:17 | ED ---
General Adult HPI - General Chief complaint: Psychiatric Symptoms Stated complaint: Mental Health Time Seen by Provider: 05/26/17 21:21 Source: patient, RN notes reviewed Mode of arrival: ambulatory Limitations: no limitations - History of Present Illness Initial comments: Patient is a pleasant 36-year-old male presenting to the emergency department as a mental health evaluation. states he was brought by the police. Patient was petitioned. Patient is unclear why he was petitioned. Patient states he has been taking his medicine. Patient states he is feeling fine. No physical complaints. No suicidal or homicidal ideation. No hallucinations. No alcohol or street drug use. Patient has been eating and sleeping and bathing. - Related Data Home Medications Medication Instructions Recorded Confirmed ARIPiprazole [Abilify Maintena] 400 mg IM Q28D 03/29/15 05/26/17 Divalproex ER [Depakote ER] 1,000 mg PO DAILY 05/26/17 05/26/17 OLANZapine [ZyPREXA] 10 mg PO DAILY 05/26/17 05/26/17 Allergies Allergy/AdvReac Type Severity Reaction Status Date / Time No Known Allergies Allergy Verified 05/26/17 21:36 Review of Systems ROS Statement: Those systems with pertinent positive or pertinent negative responses have been documented in the HPI. ROS Other: All systems not noted in ROS Statement are negative. 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 Hx of History of Any Multi-Drug Resistant Organisms: None Reported Past Surgical History: Adenoidectomy, Tonsillectomy Additional Past Surgical History / Comment(s): Throat sx Past Psychological History: Depression, Schizophrenia Smoking Status: Current every day smoker Past Alcohol Use History: Occasional Past Drug Use History: None Reported, Marijuana - Past Family History Father Family Medical History: Myocardial Infarction (NM) Additional Family Medical History / Comment(s): anger management and alchocol General Exam Limitations: no limitations General appearance: alert, in no apparent distress Head exam: Present: atraumatic Eye exam: Present: normal appearance Neck exam: Present: normal inspection Respiratory exam: Present: normal lung sounds bilaterally Cardiovascular Exam: Present: regular rate, normal rhythm GI/Abdominal exam: Present: soft. Absent: tenderness Extremities exam: Present: normal inspection Neurological exam: Present: alert Psychiatric exam: Present: flat affect Skin exam: Present: normal color Course Vital Signs 05/26/17 21:11 Temperature 98.1 F Pulse Rate 85 Respiratory 18 Rate Blood Pressure 131/58 O2 Sat by Pulse 100 Oximetry Medical Decision Making - Medical Decision Making Patient was seen by mental health services who does want patient to be admitted. They do site paranoid thoughts and flight of ideas. Patient does have a history of schizophrenia. They're concerned the patient has not been taking his medication and missing appointments. Positive clinical certificate completed. - Lab Data Lab Results 05/26/17 Range/Units 21:30 Urine Opiates Screen Not Detected (NotDetected) Ur Oxycodone Screen Not Detected (NotDetected) Urine Methadone Screen Not Detected (NotDetected) Ur Propoxyphene Screen Not Detected (NotDetected) Ur Barbiturates Screen Not Detected (NotDetected) U Tricyclic Antidepress Not Detected (NotDetected) Ur Phencyclidine Scrn Not Detected (NotDetected) Ur Amphetamines Screen Not Detected (NotDetected) U Methamphetamines Scrn Not Detected (NotDetected) U Benzodiazepines Scrn Not Detected (NotDetected) Urine Cocaine Screen Not Detected (NotDetected) U Marijuana (THC) Screen Detected H (NotDetected) Disposition Clinical Impression: Schizophrenia Disposition: TRANSFER TO PSYCH HOSP/UNIT Referrals: Santiago Velez MD [Primary Care Provider] - 1-2 days Decision Time: 23:22
[2017-05-26] MEDS ORDERED: ZIPRASIDONE 20 MG VIAL IM PRN (23:35)
[2017-05-26] MEDS ORDERED: MAGNESIUM HYDROXIDE 2,400 MG/10 ML CUP PO PRN (23:35)
[2017-05-26] MEDS ORDERED: MAG HYDROX/AL HYDROX/SIMETH 30 ML CUP PO PRN (23:35)
[2017-05-26] MEDS ORDERED: LORazepam 2 MG/ML INJ IM PRN (23:37)
[2017-05-27] MEDS: NICOTINE 14MG/24HR PATCH TRANSDERM SCH (08:17)
[2017-05-27 08:43] LABS: Basophils % (A) 0 %; Eosinophils # (A) 0.4 k/uL (0-0.7); Eosinophils % (A) 2 %; HCT 47.5 % (39.0-53.0); HGB 15.8 gm/dL (13.0-17.5); Lymphocytes # (A) 2.9 k/uL (1.0-4.8); Lymphocytes % (A) 18 %; MCH 31.5 pg (25.0-35.0); MCHC 33.3 g/dL (31.0-37.0); MCV 94.6 fL (80.0-100.0); Mean Platelet Volume 7.1; Monocytes # (A) 0.8 k/uL (0-1.0); Monocytes % (A) 5 %; Neutrophils # (A) 11.5 k/uL (1.3-7.7); Neutrophils % (A) 73 %; Platelet Count 226 k/uL (150-450); RBC 5.02 m/uL (4.30-5.90); RDW 12.8 % (11.5-15.5); WBC 15.7 k/uL (3.8-10.6)
[2017-05-27 08:59] LABS: ALT 20 U/L (21-72); AST 18 U/L (17-59); Albumin 3.9 g/dL (3.5-5.0); Alkaline Phosphatase 70 U/L (38-126); Anion Gap 9 mmol/L; Blood Urea Nitrogen 12 mg/dL (9-20); Calcium 9.4 mg/dL (8.4-10.2); Carbon Dioxide 26 mmol/L (22-30); Chloride 108 mmol/L (98-107); Cholesterol 164 mg/dL (<200); Glucose 85 mg/dL (74-99); HDL Cholesterol 37 mg/dL (40-60); LDL Cholesterol,Calculated 107 mg/dL (0-99); Potassium 4.6 mmol/L (3.5-5.1); Sodium 143 mmol/L (137-145); Total Bilirubin 0.2 mg/dL (0.2-1.3); Total Protein 6.4 g/dL (6.3-8.2); Triglycerides 99 mg/dL (<150)
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
[2017-05-27 19:08] LABS: Hemoglobin A1C 5.4 % (4.0-6.0)
--- NOTE | 2017-05-27 20:00 | CONS ---
CONSULTATION CHIEF COMPLAINT: Schizophrenia and acute psychosis. HISTORY OF PRESENT ILLNESS: This is another psych admission for this 36-year-old white male. He came in psychotic. He has a long-standing history of the same. He is confused and inappropriate at this time. REVIEW OF SYSTEMS: Not reliably obtained. Past medical history, family history and personal and social histories are unreliable or otherwise not obtainable. He is NOT KNOWN TO BE ALLERGIC TO ANYTHING. When he was seen in April, he was on: 1. Lipitor 10 mg. 2. Ventolin HFA for asthma. 3. Vitamin D 50,000 units a month. 4. Benadryl. 5. Brintellix 10 mg once a day. 6. Abilify 400 mg IM once a month. 7. Depakote 500 mg once a day. It does not sound like he is taking anything orally. Surgically he has had tonsillectomy and adenoidectomy. He does smoke but does not drink. He denies using any other drugs. PHYSICAL EXAMINATION: Blood pressure 118/62 with a pulse 104, respirations 16. He is afebrile. In general he appeared to be well developed, well nourished, in no acute distress. Skin color is normal. Skin is warm and dry. Lymph nodes are not enlarged. Head, ears, eyes, nose, mouth and throat were normal and neck veins are not distended. Thyroid is not enlarged. Chest is clear. Cardiac exam is normal. Abdomen is soft, nontender. Extremities are normal. IMPRESSION: 1. Schizophrenia. 2. History of tobacco use. 3. Hyperlipidemia. RECOMMENDATIONS: None. MMODL / IJN: [id number] /
[2017-05-28] MEDS: NICOTINE 14MG/24HR PATCH TRANSDERM SCH (09:14)
--- NOTE | 2017-05-28 11:37 | P.PN ---
Progress Note - Text Progress Note Date: 05/28/17 Patient is a 36-year-old male who was approached on 2 occasions today both times the patient refused to speak with me. Initially he stated he wanted to wait until he spoke with his county attorney at 10 AM and when I approached him after he had spoken with his county attorney he stated that he won't speak with me until he sees the workers' compensation mediator on Wednesday. I discussed with the patient that I would not be prescribing medications for him until he is Calvin with me and he continued to decline to speak with me stating he will wait until the workers' compensation mediator sees him on Wednesday and stated that he probably will be released at that time. Patient has been spending most of his time in his room and has not been interacting with other peers nor attending groups or activities. Patient has been eating however. Patient continues to insist that he was taking his medications as an outpatient. Patient was on Abilify 400 mg long-acting injectable last given March 292017. It is unclear why the patient is also on Depakote, the Zyprexa was recently begun when the patient was seen in May at [facility] as he had refused to start Trintellix and requested Zyprexa. Patient has a diagnosis of schizophrenia per [facility] outpatient records. We will attempt to speak with the patient after his court hearing on May 31.
[2017-05-28] MEDS: LORazepam 1 MG TAB PO PRN (19:04)
[2017-05-29] MEDS: LORazepam 1 MG TAB PO PRN ×4 (01:58→22:05)
[2017-05-29 11:11] LABS: Appearance,Urine Clear (Clear); Bilirubin,Urine Negative (Negative); Blood,Urine Negative (Negative); Color,Urine Yellow; Glucose,Urine (UA) Negative (Negative); Ketones,Urine Negative (Negative); Leukocyte Esterase,Urine Negative (Negative); Nitrite,Urine Negative (Negative); Protein,Urine Negative (Negative); Specific Gravity,Urine 1.014 (1.001-1.035); Urobilinogen,Urine <2.0 mg/dL (<2.0)
--- NOTE | 2017-05-29 12:46 | P.PN ---
Progress Note - Text Interval history: The patient is found in the hallway he follows me to an interview room. The patient has a diagnosis of schizophrenia and was admitted for worsening symptoms of psychosis. The patient has been refusing medication to this point and is scheduled to have a court hearing on Wednesday. We reviewed recent medication trials and today he indicates he is willing to use oral Abilify. At this moment he does not wish to receive Abilify injections but we agreed to start with oral medication. It appears in the recent past she's been on Zyprexa as well and Depakote. He endorses no history of seizure disorder and there is no documentation of epilepsy. He reports that he is eating. He spent several minutes discussing why he is here in the hospital and includes numerous extraneous details. Mental status exam: The patient is an alert male he stated he is dressed in his own clothing he has a disheveled appearance. Eye contact is intermittent. He demonstrates psychomotor slowing. Affect is bland. He demonstrates little reactivity. He is endorsing no auditory or visual hallucinations or any specific delusions however that seems unlikely. He does spontaneously describe scenarios that are likely based on delusional beliefs. He demonstrates no verbal or physical aggressiveness she demonstrates no abnormal involuntary movements. Insight and judgment impaired. He reports no suicidal or homicidal ideation intent or plan. Plan: The patient will start Abilify 15 mg daily for his symptoms of psychosis. We will monitor him for safety we will encourage his participation in the milieu. We will monitor his compliance with medication. Vital signs reviewed.
[2017-05-29] MEDS: ARIPiprazole 15 MG TAB PO SCH (12:52)
[2017-05-30] MEDS: LORazepam 1 MG TAB PO PRN ×3 (05:43→21:11)
[2017-05-30] MEDS: ARIPiprazole 15 MG TAB PO SCH (09:24)
--- NOTE | 2017-05-30 13:46 | P.PN ---
Progress Note - Text Interval history: The patient is found in the hallway he follows me to an interview room. He reports he slept last night staff recorded he slept 5 hours. He states he's been compliant with the Abilify and has no concerns regarding that medication. Appetite stable. He has been attending some groups. He expects that his father will visit this evening. Mental status exam: The patient is alert he is a disheveled appearance he is dressed in the same clothing is yesterday. Eye contact is intermittent. Affect is bland. He states that his mood is "mild". He states he feels more comfortable here on the mental health unit and is less upset about being here. He is reporting no suicidal or homicidal ideation intent or plan. He describes having no auditory or visual hallucinations and states he has no symptoms of psychosis. Again he is likely under reporting. He has some mild psychomotor slowing. He is pleasant and cooperative during the session. He demonstrates no abnormal involuntary movements. He demonstrates no verbal or physical aggressiveness. Plan: The patient will continue on the Abilify as written. We will monitor him for safety and encourage his continued participation in the milieu.
[2017-05-31] MEDS: ARIPiprazole 15 MG TAB PO SCH (07:55)
[2017-05-31] MEDS: LORazepam 1 MG TAB PO PRN ×2 (07:56→17:40)
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
[2017-05-31] MEDS: ACETAMINOPHEN TAB 325 MG TAB PO PRN (20:31)
[2017-06-01] MEDS: LORazepam 1 MG TAB PO PRN ×2 (02:47→16:27)
[2017-06-01] MEDS: ARIPiprazole 15 MG TAB PO SCH (08:17)
[2017-06-01] MEDS: ACETAMINOPHEN TAB 325 MG TAB PO PRN (08:42)
--- NOTE | 2017-06-01 13:44 | P.PN ---
Progress Note - Text Progress Note Date: 06/01/17 Interval History: Patient is a 36-year-old male who was seen today and reports that he does not want to take the long-acting Abilify because he continues to have leg pain from the brown recluse spider bite. He states that he wants a second opinion from his primary care doctor Dr. Pastrana. Patient states that he understands he is on a court order but continues to wish to take only oral Abilify, patient states that he was compliant with his medications as an outpatient. Patient reports that he did sleep well last evening. Mental Status: Appearance/Attitude: Patient appears disheveled, dressed in casual clothing and makes intermittent eye contact and is superficially cooperative. Behavior: Patient does not exhibit any psychomotor agitation or retardation. Speech/Language: patient's speech is spontaneous and normal volume and rhythm and he is coherent. Thought Process: patient is goal-directed, no evidence of loose association or flight of ideas Thought Content: patient denies auditory or visual hallucinations and continues to report that the brown recluse spider bite as the cause for his leg pain, is pumping poison into his blood. Patient continues to argue against taking long- acting injectable because of the spider bite and requiring a second opinion from his primary care physician to approve it. Patient insists he was compliant with medications as an outpatient, however he had refused to take his most recent injection of Abilify. Patient reports that he is sleeping and eating well. Suicidal/Homicidal Ideation: patient denies any current suicidal or homicidal ideation Sensorium/Cognition: patient is alert and oriented to person, place, and time and his recent and remote memory are grossly intact Mood/Affect: patient's mood remains guarded, his affect is blunted Insight/Judgment: patient's insight and judgment are impaired Assessment: patient continues to verbalize that the brown spider bite is the reason for his refusing injections as it is causing leg pain, pumping poison into his blood and continues to request a second opinion from his primary care physician. Patient states that he was compliant with medication as an outpatient and states that he wishes to continue on oral Abilify and no longer take the injectable. Patient has been attending some groups and activities. Patient reports no side effects from the Abilify. Plan: patient will be increased to Abilify 20 mg beginning tomorrow and will reorder Abilify maintenna 400 mg as this is the dose that the patient was on in the past. Patient and I reviewed what being on a court order means. Patient continues to require hospitalization to target his psychotic symptoms.
[2017-06-02] MEDS ORDERED: LORazepam 1 MG TAB ONE (00:35)
[2017-06-02] MEDS: LORazepam 1 MG TAB PO PRN ×2 (08:18→15:03)
[2017-06-02] MEDS ORDERED: ARIPiprazole 400 MG VIAL (NO CHARGE) IM ONE (11:10)
--- NOTE | 2017-06-02 12:51 | P.PN ---
Progress Note - Text Progress Note Date: 06/02/17 Interval History: Patient is a 36-year-old male who reports that he continues to want to take oral Abilify, stating that he needs to check with [facility] and his PCP to see if they're okay with him getting injectable medication. Patient remains disheveled looking, states that he slept only about 3 hours last night. He states that he's been enjoying groups. Patient denied any auditory hallucinations suicidal thoughts or paranoia. He reports that his appetite is been good. Patient continued to focus on leg pain from the spider bite and the injections. Mental Status: Appearance/Attitude: Patient appears disheveled casually dressed , makes intermittent eye contact and is superficially cooperative Behavior: Patient did not exhibit any psychomotor agitation or retardation but was unable to remain in the interview room for very long today without getting up and walking out Speech/Language: Patient's speech was spontaneous of normal volume and rhythm and he is coherent. Thought Process: Patient continues to be disorganized and rambling, focused on his leg pain, the spider bite and having a second opinion regarding his long- acting injection Thought Content: Patient denies auditory or visual hallucinations. Patient reports that he is eating well but not sleeping more than 3 hours a night. Patient states that he has been enjoying groups. Patient continues to be focused on his leg pain he feels caused by the spider bite as well as from his long-acting injectable medication. Patient feels that the spider bite cause poisoned to be pumped through his blood. He continues to request a second opinion from his primary care physician as well as from the physician at [facility]. Suicidal/Homicidal Ideation: Patient denies any current suicidal or homicidal ideation. Sensorium/Cognition: Patient is alert and oriented to person, place, and time and his recent and remote memory are grossly intact Mood/Affect: Patient's mood remains restricted and his affect is flat Insight/Judgment: patient's insight and judgment are limited Assessment: patient remains disorganized, focused on the spider bite and leg pain as being caused by injectable medication as well as the spider bite having pumped poison through his blood. He continues to request a second opinion before getting his injectable Abilify. Patient sleeping about 3 hours at night states that he's finding groups enjoyable. Patient reports no side effects from the Abilify orally. Plan: patient will continue on Abilify 20 mg orally for 2 weeks beginning today , he will receive Abilify Maintenna 400 mg today his prior dose of long-acting injectable. Patient was in court yesterday and is now under a court order for treatment. Patient will also be given melatonin 3 mg at bedtime to assist with his sleep. Patient continues to require hospitalization to further stabilize his psychotic symptoms.
[2017-06-02] MEDS: MELATONIN 3 MG TABLET PO SCH (20:38)
[2017-06-03] MEDS: LORazepam 1 MG TAB PO PRN ×3 (02:25→20:08)
[2017-06-03 07:26] VITALS: RESP 16
[2017-06-03 08:48] VITALS: BMI 22.1
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
[2017-06-03] MEDS: MELATONIN 3 MG TABLET PO SCH (20:08)
[2017-06-04] MEDS: LORazepam 1 MG TAB PO PRN ×3 (08:04→23:33)
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
[2017-06-04] MEDS: MELATONIN 3 MG TABLET PO SCH (20:31)
[2017-06-05] MEDS: LORazepam 1 MG TAB PO PRN ×2 (12:39→20:10)
--- NOTE | 2017-06-05 15:35 | P.PN ---
Progress Note - Text Progress Note Date: 06/05/17 Interval history: Patient is seen in cross coverage today. He is not voice any adverse psychotropic medication side effects. He describes his mood is good. He is currently in outpatient treatment through [facility]. Mental status exam: He is alert and cooperative with the interview. His affect overall is restricted. He describes his mood is good. He denies any thoughts of harm to self or others. He denies any hallucinations. He does not verbalize any yanique delusions. He does not show any agitation. Plan: Patient will be maintained on current psychotropic medication regimen. We 'll monitor for any medication side effects. Continue to monitor his ongoing status which appears improved. 2 to cover this patient through the weekend.
[2017-06-05] MEDS: MELATONIN 3 MG TABLET PO SCH (20:09)
[2017-06-06] MEDS: LORazepam 1 MG TAB PO PRN ×2 (06:12→14:34)
--- NOTE | 2017-06-06 16:12 | P.PN ---
Progress Note - Text Progress Note Date: 06/06/17 Interval history: Patient is seen in [facility] [place]. He reports that he would be feeling ready for discharge as soon as tomorrow. He reports he slept well last night and is eating his meals well. He does not voice any adverse psychotropic medication side effects. Mental status exam: He is alert and cooperative with the interview. His speech is fluent, rapid or pressured. Thought processes organized. His mood is described as "good." He denies any thoughts of harm to self or others, he denies any hallucinations. He does not make any delusional statements. He does not show any agitation. Plan: We'll maintain current psychotropic medication regimen. Continue to monitor for any medication side effects. Status appears improved.
[2017-06-06] MEDS: MELATONIN 3 MG TABLET PO SCH (20:21)
[2017-06-07] MEDS: LORazepam 1 MG TAB PO PRN ×2 (09:48→20:37)
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
[2017-06-07] MEDS: MELATONIN 3 MG TABLET PO SCH (20:37)
[2017-06-08 06:53] VITALS: TEMP 97.7
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
[2017-06-08] MEDS: LORazepam 1 MG TAB PO PRN (16:15)
[2017-06-08] MEDS: MELATONIN 3 MG TABLET PO SCH (20:35)
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
[2017-06-09 19:59] VITALS: BP 107/56; PULSE 67
== END 2017-06-09 13:16 | disposition home or self-care (01) | DRG 885 ==
LOC: EC 21:10 → 3MHU 23:33
PROVIDERS: ADMIT Psychiatry & Neurology Psychiatry; ATTEND Psychiatry & Neurology Psychiatry
DX: F20.9 Schizophrenia, unspecified (principal); E78.5 Hyperlipidemia, unspecified; F12.90 Cannabis use, unspecified, uncomplicated; T43.596A Underdosing of other antipsychotics and neuroleptics, initial encounter; T42.6X6A Underdosing of other antiepileptic and sedative-hypnotic drugs, initial encounter; F32.9 Major depressive disorder, single episode, unspecified; F17.200 Nicotine dependence, unspecified, uncomplicated; Z82.49 Family history of ischemic heart disease and other diseases of the circulatory system; Z90.89 Acquired absence of other organs; Z79.899 Other long term (current) drug therapy
CPT/HCPCS: 80053; 80061; 80306; 81003; 82075; 83036; 84443; 85025; 99285